=== PATIENT | female | born 1930 | race Two or more races ===

== ENCOUNTER 2018-03-27 13:04 | Inpatient (IN) | payer MEDICARE, BC ==
[~2018-03-27] VITALS: Ht 154.9 cm; Wt 116.7 kg
[2018-03-27] MEDS ORDERED: MAGNESIUM HYDROXIDE 2,400 MG/30 ML ORAL.SUSP. PO PRN (15:00)
[2018-03-27] MEDS ORDERED: MAG HYDROX/AL HYDROX/SIMETH 30 ML ORAL.SUSP PO PRN (15:00)
[2018-03-27] MEDS ORDERED: METHYL SALICYLATE/MENTHOL TOPICAL OINTMENT 29GM TUBE. TP PRN (15:00)
[2018-03-27 15:30] LABS: BASO # 0.1 x10^3/uL (0.0-0.2); BASO % 1 % (0-3); EOS # 0.2 x10^3/uL (0.0-0.7); EOS % 4 % (0-3); HEMATOCRIT 39.2 % (36.0-47.0); HEMOGLOBIN 12.8 g/dL (12.0-15.5); LYMPH # 1.4 x10^3/uL (1.0-4.8); LYMPH % 24 % (24-48); MEAN CORPUSCULAR HEMOGLOBIN 31 pg (25-35); MEAN CORPUSCULAR HGB CONC 33 g/dL (31-37); MEAN CORPUSCULAR VOLUME 94 fL (79-100); MONO # 0.6 x10^3/uL (0.0-1.1); MONO % 11 % (0-9); NEUT # 3.5 x10^3uL (1.8-7.7); NEUT % 61 % (31-73); PLATELET COUNT 147 x10^3/uL (140-400); RED BLOOD COUNT 4.16 x10^6/uL (3.50-5.40); RED CELL DISTRIBUTION WIDTH 14.7 % (11.5-14.5); WHITE BLOOD COUNT 5.8 x10^3/uL (4.0-11.0)
[2018-03-27] MEDS ORDERED: RISP0.5T3 PO (15:43)
[2018-03-27] MEDS ORDERED: WARF7.5T45 PO (15:43)
[2018-03-27] MEDS ORDERED: SERT100T PO (15:43)
[2018-03-27] MEDS ORDERED: ISOS30TA4 PO (15:43)
[2018-03-27] MEDS ORDERED: TRIA15CR50 TP (15:43)
[2018-03-27] MEDS ORDERED: LISI-334 PO (15:43)
[2018-03-27] MEDS ORDERED: HYDR-2145 PO (15:43)
[2018-03-27] MEDS ORDERED: NITR0.4T22 SL (15:43)
[2018-03-27] MEDS ORDERED: CLOP75TA PO (15:43)
[2018-03-27] MEDS ORDERED: CARV25TA2 PO (15:43)
[2018-03-27] MEDS ORDERED: CALC600T23 PO (15:43)
[2018-03-27] MEDS ORDERED: DONE5TAB7 PO (15:43)
[2018-03-27] MEDS ORDERED: WARF3TAB50 PO (15:43)
[2018-03-27] MEDS ORDERED: ASPI-612 PO (15:43)
[2018-03-27 15:44] LABS: ALBUMIN 3.3 g/dL (3.4-5.0); CALCIUM 8.5 mg/dL (8.5-10.1); CREATININE 1.2 mg/dL (0.6-1.0); GFR 42.4; MAGNESIUM 2.2 mg/dL (1.8-2.4); TOTAL BILIRUBIN 0.4 mg/dL (0.2-1.0); TOTAL PROTEIN 6.6 g/dL (6.4-8.2)
[2018-03-27 15:50] VITALS: BP 102/62
[2018-03-27] MEDS ORDERED: NITROGLYCERIN SUBLINGUAL 0.4 MG BOTTLE OF 25. SL PRN (16:00)
[2018-03-27] MEDS ORDERED: TRIAMCINOLONE ACETONIDE 0.1% TOPICAL CREAM 15GM TUBE. TP PRN (16:15)
[2018-03-27] MEDS: CARVEDILOL 12.5 MG TABLET PO SCH (17:26)
[2018-03-27 19:42] VITALS: BP 166/67
[2018-03-27] MEDS: DONEPEZIL HCL 5 MG TABLET. PO SCH (19:44)
[2018-03-27] MEDS: risperiDONE 0.25 MG TABLET. PO SCH (19:44)
[2018-03-27] MEDS: LISINOPRIL 20 MG TABLET PO SCH (19:44)
--- NOTE | 2018-03-27 19:51 | PDOC ---
Exam Note: Donal Note: Please also refer to the separate dictated note~for this date of service dictated separately.~Patient seen individually. Discussed the patient with Nursing staff reviewed the chart.~Reviewed interim history and current functioning. Reviewed vital signs,~Labs/ Radiology~and current medications noted below. Continue current treatment with the changes noted in the dictated addendum note Assessment: Vital Signs: Vital Signs Date Time Temp Pulse Resp B/P (MAP) Pulse Ox O2 Delivery O2 Flow Rate FiO2 03/27/18 19:44 60 166/67 03/27/18 19:42 96 03/27/18 15:50 98.0 18 Labs: Laboratory Tests Test 03/27/18 15:15 White Blood Count 5.8 x10^3/uL (4.0-11.0) Red Blood Count 4.16 x10^6/uL (3.50-5.40) Hemoglobin 12.8 g/dL (12.0-15.5) Hematocrit 39.2 % (36.0-47.0) Mean Corpuscular Volume 94 fL (79-100) Mean Corpuscular Hemoglobin 31 pg (25-35) Mean Corpuscular Hemoglobin Concent 33 g/dL (31-37) Red Cell Distribution Width 14.7 % (11.5-14.5) H Platelet Count 147 x10^3/uL (140-400) Neutrophils (%) (Auto) 61 % (31-73) Lymphocytes (%) (Auto) 24 % (24-48) Monocytes (%) (Auto) 11 % (0-9) H Eosinophils (%) (Auto) 4 % (0-3) H Basophils (%) (Auto) 1 % (0-3) Neutrophils # (Auto) 3.5 x10^3uL (1.8-7.7) Lymphocytes # (Auto) 1.4 x10^3/uL (1.0-4.8) Monocytes # (Auto) 0.6 x10^3/uL (0.0-1.1) Eosinophils # (Auto) 0.2 x10^3/uL (0.0-0.7) Basophils # (Auto) 0.1 x10^3/uL (0.0-0.2) Sodium Level 144 mmol/L (136-145) Potassium Level 4.0 mmol/L (3.5-5.1) Chloride Level 105 mmol/L (98-107) Carbon Dioxide Level 28 mmol/L (21-32) Anion Gap 11 (6-14) Blood Urea Nitrogen 29 mg/dL (7-20) H Creatinine 1.2 mg/dL (0.6-1.0) H Estimated GFR (Cockcroft-Gault) 42.4 BUN/Creatinine Ratio 24 (6-20) H Glucose Level 113 mg/dL (70-99) H Calcium Level 8.5 mg/dL (8.5-10.1) Magnesium Level 2.2 mg/dL (1.8-2.4) Total Bilirubin 0.4 mg/dL (0.2-1.0) Aspartate Amino Transferase (AST) 17 U/L (15-37) Alanine Aminotransferase (ALT) 20 U/L (14-59) Alkaline Phosphatase 79 U/L (46-116) Total Protein 6.6 g/dL (6.4-8.2) Albumin 3.3 g/dL (3.4-5.0) L Albumin/Globulin Ratio 1.0 (1.0-1.7) Current Medications: Meds: Current Medications Acetaminophen (Tylenol) 650 mg PRN Q6HRS PRN PO PAIN / TEMP; Start 03/27/18 at 15:00 Multi-Ingredient Ointment (Analgesic [place]) 1 sofia PRN QID PRN TP MUSCLE PAIN; Start 03/27/18 at 15:00 Al Hydroxide/Mg Hydroxide (Mylanta Plus Xs) 15 ml PRN AFTMEALHC PRN PO DYSPEPSIA; Start 03/27/18 at 15:00 Magnesium Hydroxide (Milk Of Magnesia) 2,400 mg PRN QHS PRN PO CONSTIPATION; Start 03/27/18 at 15:00 Sertraline HCl (Zoloft) 100 mg DAILY PO ; Start 03/28/18 at 09:00 Donepezil HCl (Aricept) 5 mg QHS PO Last administered on 03/27/18at 19:44; Start 03/27/18 at 21:00 Risperidone (RisperDAL) 0.25 mg BID PO Last administered on 03/27/18at 19:44; Start 03/27/18 at 21:00 Clopidogrel Bisulfate (Plavix) 75 mg DAILY PO ; Start 03/28/18 at 09:00 Hydrochlorothiazide (Hydrodiuril) 25 mg DAILY PO ; Start 03/28/18 at 09:00 Isosorbide Mononitrate (Imdur) 30 mg DAILY PO ; Start 03/28/18 at 09:00 Lisinopril (Prinivil) 20 mg BID PO Last administered on 03/27/18at 19:44; Start 03/27/18 at 21:00 Nitroglycerin (Nitrostat) 0.4 mg PRN Q5MIN PRN SL CHEST PAIN; Start 03/27/18 at 16:00 Aspirin (Aspirin Enteric Coated) 81 mg DAILY PO ; Start 03/28/18 at 09:00 Calcium Carbonate/ Glycine (Oscal) 500 mg DAILY PO ; Start 03/28/18 at 09:00 Carvedilol (Coreg) 25 mg BIDWMEALS PO Last administered on 03/27/18at 17:26; Start 03/27/18 at 17:00 Triamcinolone Acetonide (Kenalog) 1 sofia PRN BID PRN TP RASH; Start 03/27/18 at 16:15 Non-Formulary Medication (Warfarin Sodium ) 3.25 mg Mon, Wed, Fri PO ; Start at 16:00; Status UNV Warfarin Sodium (Coumadin) 7.5 mg QTUTHSASU PO ; Start 03/28/18 at 16:00 Active Scripts Active Reported Warfarin Sodium 3 Mg Tablet 3.25 Mg PO TUE, WED, FRI Warfarin Sodium 7.5 Mg Tablet 7.5 Mg PO SUN, , , SA Triamcinolone Acetonide 15 Gm Cream..g. 15 Gm TP PRN BID PRN Zoloft (Sertraline Hcl) 100 Mg Tablet 100 Mg PO DAILY Risperidone 0.5 Mg Tablet 0.25 Mg PO BID NITROGLYCERIN SubLingual (Nitroglycerin) 0.4 Mg Tab.subl 0.4 Mg SL PRN Q5MIN PRN Lisinopril 20 Mg Tablet 20 Mg PO BID Isosorbide Mononitrate Er (Isosorbide Mononitrate) 30 Mg Tab.er.24h 30 Mg PO DAILY Hydrochlorothiazide Tablet (Hydrochlorothiazide) 25 Mg Tablet 25 Mg PO DAILY Donepezil Hcl 5 Mg Tablet 5 Mg PO QHS Clopidogrel (Clopidogrel Bisulfate) 75 Mg Tablet 75 Mg PO DAILY Carvedilol 25 Mg Tablet 25 Mg PO BIDWMEALS Calcium Carbonate 600 Mg Tablet 600 Mg PO DAILY Aspirin Ec (Aspirin) 81 Mg Tablet. 81 Mg PO DAILY I have reviewed the current psychotropics carefully including drug interactions. Risk benefit ratio favors no change other than as noted in my dictated progress note. SHERRY MATHIS MD Mar 27, 2018 19:51
[2018-03-27 20:23] LABS: BILIRUBIN,URINE NEG (NEG); CLARITY,URINE HAZY; COLOR,URINE YELLOW; GLUCOSE,URINE NEG (NEG)
[2018-03-27 20:24] LABS: BACTERIA,URINE 0 /HPF (0-FEW); HYALINE CASTS, URINE MANY /HPF; NITRITE,URINE NEG (NEG); SQUAMOUS EPITHELIAL CELL,UR FEW /LPF; UROBILINOGEN,URINE 0.2 mg/dL (0.2 mg/dL)
[2018-03-28 01:13] LABS: HEMOGLOBIN A1C 5.3 % (4.8-5.6)
[2018-03-28 06:17] VITALS: BP 173/73
[2018-03-28 08:53] VITALS: BP 121/68
[2018-03-28] MEDS: risperiDONE 0.25 MG TABLET. PO SCH ×2 (08:54→19:43)
[2018-03-28] MEDS: LISINOPRIL 20 MG TABLET PO SCH ×2 (08:54→19:43)
[2018-03-28] MEDS: CARVEDILOL 12.5 MG TABLET PO SCH ×2 (08:54→16:55)
[2018-03-28] MEDS: ASPIRIN ENTERIC COATED 81 MG TABLET.DR. PO SCH (08:56)
[2018-03-28] MEDS: CLOPIDOGREL BISULFATE 75 MG TABLET PO SCH (08:56)
[2018-03-28] MEDS: hydroCHLOROthiazide 25 MG TABLET PO SCH (08:56)
[2018-03-28] MEDS: ISOSORBIDE MONONITRATE ER 30 MG TAB.ER.24H PO SCH (08:59)
[2018-03-28] MEDS: CALCIUM CARBONATE 500 MG TABLET PO SCH (08:59)
[2018-03-28] MEDS ORDERED: SERTRALINE 100 MG TABLET. PO SCH (09:00)
[2018-03-28 13:26] LABS: THYROID STIM HORMONE (TSH) 1.382 uIU/mL (0.358-3.740)
[2018-03-28] MEDS: ACETAMINOPHEN 325 MG TABLET PO PRN (14:17)
[2018-03-28 16:16] VITALS: BP 140/80
--- NOTE | 2018-03-28 16:29 | HP ---
ADMIT DATE: 03/27/2018 PSYCHIATRIC ADMISSION HISTORY/EVALUATION This late entry date of service 03/27/2018 covers elements not covered in my initial note. IDENTIFYING DATA: The patient is an 87-year-old female, who was referred by her primary care physician and outpatient psychiatrist on account of suicidal ideation, worsening symptoms of depression and short-term memory deficits. She has failed outpatient psychiatric interventions with her psychiatrist. We had contacted her outpatient psychiatrist, who in fact recommended the patient be hospitalized inpatient. She presented to [facility] Emergency Room the previous night of 03/26/2018 with worsening symptoms of depression, short term memory deficits, suicidal ideation, wanting to end her life. CHIEF COMPLAINT: "She has been depressed. I would not kill myself, but it has been difficult." HISTORY OF PRESENT ILLNESS: The patient reportedly resides in an apartment on her own. Family has been assisting with the administration of her medications. She has had some short term memory deficits, frequently forgets her medications and more recently states she has been tired, feeling helpless, hopeless and worthless. She has had some sleep and appetite changes and the suicidal ideation, feeling she would be better off . No active suicidal plans, intent or attempt. No clear symptoms of bipolar disorder. PAST PSYCHIATRIC HISTORY: As above. MEDICAL HISTORY: Positive for asthma, coronary artery disease, CHF, cholelithiasis, colon polyps, diverticulosis, hypertension, hyperlipidemia, macular degeneration, osteoarthritis, obstructive sleep apnea, osteopenia, pulmonary embolism, squamous cell carcinoma. PAST SURGICAL HISTORY: Status post appendectomy, cardiac catheterization, cholecystectomy, hysterectomy, rotator cuff repair, tonsillectomy, adenoidectomy, and tubal ligation. ACCU-CHEKS: None. CODE STATUS: DNR. ALLERGIES: BACITRACIN NEOMYCIN, HEPARIN, TRIAMTERENE, POLYMYXIN B. DIET: Regular. ACCU-CHEKS: None. Takes medications whole. Ambulates independent with a walker. CURRENT PSYCHOTROPICS: Aricept 5 mg daily, Risperdal 0.25 mg twice a day, Zoloft 100 mg a day. FAMILY HISTORY: Noncontributory. SOCIAL HISTORY: No alcohol, drug abuse, physical, sexual or elder abuse history is noted. She is not known to be a perpetrator. REACTION TO HOSPITALIZATION: The patient accepting of it. ASSETS: Supportive family. The patient was admitted by her DPOA, Katie Harrell. MENTAL STATUS EXAM: The patient was seen individually evening of 03/27/2018. This was shortly after she arrived in the unit. She is alert, oriented to place and situation. She knew it was 2018, was unsure of the month or the date. She was otherwise pleasant, verbal. Short term memory is impaired. Remembered 1/3 objects at 5 minutes. Speech is coherent. Thought processes goal directed. Intellect average. Insight good. Judgment intact. Mood is depressed, anxious. Affect is mood congruent. Attention span is short. She tends to minimize the suicidal ideation that prompted the referral for inpatient stabilization. Her electronic medication administration record was reviewed in detail by me. IMPRESSION: Major depressive disorder, recurrent with suicidal ideation. The major neurocognitive disorder, early vascular with depression, anxiety disorder, unspecified; impulse control disorder, unspecified. Rest as above. PLAN: Admit to Geropsychiatry Unit at [facility]. I will see the patient daily individually from a psychiatric standpoint, medical followup per Dr. Marquez. Continue current psychotropics, observe baseline, then make further adjustments as clinically indicated. MAN Елена MATHIS MD DR: KIRSTEN/comfort JOB#: [id number] / [id number]
[2018-03-28] MEDS: WARFARIN 7.5 MG TABLET. PO SCH (16:54)
--- NOTE | 2018-03-28 17:28 | EKG ---
[address] [address] Test Date: 2018-03-28 Test Time: 16:56:29 Pat Name: JOELLE MILLS Department: Room: [address] [place] [address] Gender: F [employer]: : [id number] Requested By: SHERRY MATHIS Order Number: [id number] Reading MD: Rigo Brown Measurements Intervals [place] Rate: 61 P: -34 [place]: 114 QRS: -33 QRSD: 112 T: 66 QT: 442 QTc: 446 Interpretive Statements SINUS RHYTHM ABNORMAL LEFT AXIS DEVIATION LEFT ANTERIOR FASCICULAR BLOCK T ABNORMALITY IN HIGH LATERAL LEADS ABNORMAL ECG RI6.01 No previous ECG available for comparison Electronically Signed On 03-29-2018 8:50:05 COMBATANT DIVER QUALIFIED by Rigo Brown
--- NOTE | 2018-03-28 19:23 | PDOC ---
Exam Note: Donal Note: Please also refer to the separate dictated note~for this date of service dictated separately.~Patient seen individually. Discussed the patient with Nursing staff reviewed the chart.~Reviewed interim history and current functioning. Reviewed vital signs,~Labs/ Radiology~and current medications noted below. Continue current treatment with the changes noted in the dictated addendum note Assessment: Vital Signs: Vital Signs Date Time Temp Pulse Resp B/P (MAP) Pulse Ox O2 Delivery O2 Flow Rate FiO2 03/28/18 16:55 65 140/80 03/28/18 16:16 97.5 18 98 I&O Intake and Output 03/28/18 07:00 Intake Total 240 ml Balance 240 ml Intake Oral 240 ml Labs: Laboratory Tests Test 03/28/18 14:45 Prothrombin Time 10.5 SEC (9.4-11.4) Prothrombin Time INR 1.1 (0.9-1.1) Current Medications: Meds: Current Medications Acetaminophen (Tylenol) 650 mg PRN Q6HRS PRN PO PAIN / TEMP Last administered on 03/28/18at 14:17; Start 03/27/18 at 15:00 Multi-Ingredient Ointment (Analgesic [place]) 1 sofia PRN QID PRN TP MUSCLE PAIN; Start 03/27/18 at 15:00 Al Hydroxide/Mg Hydroxide (Mylanta Plus Xs) 15 ml PRN AFTMEALHC PRN PO DYSPEPSIA; Start 03/27/18 at 15:00 Magnesium Hydroxide (Milk Of Magnesia) 2,400 mg PRN QHS PRN PO CONSTIPATION; Start 03/27/18 at 15:00 Sertraline HCl (Zoloft) 100 mg DAILY PO Last administered on 03/28/18at 08:56; Start 03/28/18 at 09:00; Stop 03/28/18 at 16:45; Status DC Donepezil HCl (Aricept) 5 mg QHS PO Last administered on 03/27/18at 19:44; Start 03/27/18 at 21:00 Risperidone (RisperDAL) 0.25 mg BID PO Last administered on 03/28/18at 08:54; Start 03/27/18 at 21:00 Clopidogrel Bisulfate (Plavix) 75 mg DAILY PO Last administered on 03/28/18at 08:56; Start 03/28/18 at 09:00 Hydrochlorothiazide (Hydrodiuril) 25 mg DAILY PO Last administered on at 08:56; Start 03/28/18 at 09:00 Isosorbide Mononitrate (Imdur) 30 mg DAILY PO Last administered on 03/28/18at 08:59; Start 03/28/18 at 09:00 Lisinopril (Prinivil) 20 mg BID PO Last administered on 03/28/18at 08:54; Start 03/27/18 at 21:00 Nitroglycerin (Nitrostat) 0.4 mg PRN Q5MIN PRN SL CHEST PAIN; Start 03/27/18 at 16:00 Aspirin (Aspirin Enteric Coated) 81 mg DAILY PO Last administered on at 08:56; Start 03/28/18 at 09:00 Calcium Carbonate/ Glycine (Oscal) 500 mg DAILY PO Last administered on at 08:59; Start 03/28/18 at 09:00 Carvedilol (Coreg) 25 mg BIDWMEALS PO Last administered on 03/28/18at 16:55; Start 03/27/18 at 17:00 Triamcinolone Acetonide (Kenalog) 1 sofia PRN BID PRN TP RASH; Start 03/27/18 at 16:15 Warfarin Sodium (Coumadin) 3.75 mg QMWF PO ; Start 03/29/18 at 16:00 Warfarin Sodium (Coumadin) 7.5 mg QTUTHSASU PO Last administered on 03/28/18at 16:54; Start 03/28/18 at 16:00 Warfarin Sodium (Coumadin Per Physician) 1 each PRN DAILY PRN MC SEE COMMENTS; Start 03/28/18 at 07:30 Vitamin D (Vitamin D3) 50,000 unit WEEKLY PO ; Start 03/29/18 at 09:00 Sertraline HCl (Zoloft) 75 mg DAILY PO ; Start 03/29/18 at 09:00 Bupropion HCl (Wellbutrin Xl) 150 mg DAILY PO ; Start 03/29/18 at 09:00 Active Scripts Active Reported Warfarin Sodium 3 Mg Tablet 3.25 Mg PO MON, WED, FRI Warfarin Sodium 7.5 Mg Tablet 7.5 Mg PO SUN, TU, TH, SA Triamcinolone Acetonide 15 Gm Cream..g. 15 Gm TP PRN BID PRN Zoloft (Sertraline Hcl) 100 Mg Tablet 100 Mg PO DAILY Risperidone 0.5 Mg Tablet 0.25 Mg PO BID NITROGLYCERIN SubLingual (Nitroglycerin) 0.4 Mg Tab.subl 0.4 Mg SL PRN Q5MIN PRN Lisinopril 20 Mg Tablet 20 Mg PO BID Isosorbide Mononitrate Er (Isosorbide Mononitrate) 30 Mg Tab.er.24h 30 Mg PO DAILY Hydrochlorothiazide Tablet (Hydrochlorothiazide) 25 Mg Tablet 25 Mg PO DAILY Donepezil Hcl 5 Mg Tablet 5 Mg PO QHS Clopidogrel (Clopidogrel Bisulfate) 75 Mg Tablet 75 Mg PO DAILY Carvedilol 25 Mg Tablet 25 Mg PO BIDWMEALS Calcium Carbonate 600 Mg Tablet 600 Mg PO DAILY Aspirin Ec (Aspirin) 81 Mg Tablet.dr 81 Mg PO DAILY I have reviewed the current psychotropics carefully including drug interactions. Risk benefit ratio favors no change other than as noted in my dictated progress note. Diagnosis: Problems: (1) Confusion (2) Depression SHERRY MATHIS MD Mar 28, 2018 19:23
[2018-03-28] MEDS: DONEPEZIL HCL 5 MG TABLET. PO SCH (19:43)
--- NOTE | 2018-03-29 00:44 | CONS ---
DATE OF CONSULTATION: 03/28/2018 REASON FOR CONSULTATION: Medical management. HISTORY OF PRESENT ILLNESS: The patient is an 87-year-old female patient, who was brought in by her daughter as she signed herself and she apparently went to [facility] for depression with suicidal ideations, stating that if she had a gun, she would have killed herself, all this in a background of major depressive disorder. On questioning her, she stated that she is lonely. I think she lost her sons, one of them has killed himself. One daughter lives in [place] and she has not seen her for years and her daughter from second marriage lives nearby her and keeps an eye on her. She lives alone with her cats. PAST MEDICAL HISTORY: Significant for bronchial asthma, coronary artery disease, congestive heart failure, hypertension, hyperlipidemia, macular degeneration, osteoarthritis, obstructive sleep apnea, osteopenia, pulmonary embolism, and squamous cell carcinoma. PAST SURGICAL HISTORY: Significant for appendectomy, cardiac catheterization, cholecystectomy, hysterectomy, rotator cuff repair, tonsillectomy, adenoidectomy and tubal ligation. PAST PSYCHIATRIC HISTORY: Significant for depression. ALLERGIES: She is allergic to BACITRACIN, NEOMYCIN, HEPARIN, TRIAMTERENE, AND POLYMYXIN B. MEDICATIONS: She is currently on following medications: She is on Aricept 5 mg at bedtime; warfarin 7.5 mg on Tuesday, Tuesday, and Tuesday and she is on warfarin 3.25 mg on Tuesday, Tuesday, Tuesday; Plavix 75 mg once a day, isosorbide mononitrate 30 mg daily, nitroglycerin 0.4 mg sublingually every 5 minutes x3. She is on carvedilol 25 mg twice a day with meals, lisinopril 20 mg twice a day, aspirin 81 mg daily, sertraline 100 mg daily, risperidone 0.25 mg twice a day, calcium carbonate 600 mg daily, hydrochlorothiazide 25 mg once a day, triamcinolone acetonide cream applied topically twice a day for skin rash. FAMILY HISTORY: Unremarkable. SOCIAL HISTORY: She is , lives alone. She has one daughter that lives nearby and other one lives in [place]. She does not smoke, drink alcohol or recreational drugs. 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 REVIEW OF SYSTEMS: The patient denied any blurring of vision, cataract, glaucoma, but has senile macular degeneration. Denied any earache, tinnitus or sensorineural deafness. Denied any nosebleeds, stuffy nose or postnasal drip. Denied any sore throat, sore tongue, toothache, hoarseness of voice or difficulty swallowing. Denied any nausea, vomiting, diarrhea or constipation. Denied any hematemesis, melena or hematochezia. Denied any dysuria, frequency or hematuria. Denied any chest pain. Did complain of shortness of breath on exertion, but denied any orthopnea or paroxysmal nocturnal dyspnea. Denied any cough, phlegm or hemoptysis. Denied any chills, rigors, or fever. Denied any dizziness, lightheadedness, or vertigo. She did have sleep apnea done twice, was diagnosed with obstructive sleep apnea but refused to go on CPAP. PHYSICAL EXAMINATION: GENERAL: When I examined her, she looked well and was clearly in no apparent respiratory distress. No pallor, jaundice, cyanosis, or thyromegaly. No jugular venous distension. No limb edema. VITAL SIGNS: Her heart rate was 65, blood pressure was 121/68, temperature was 97.8, respiratory rate was 18 and oxygen saturation was 94% on room air. HEAD, EYES, EARS, NOSE, and THROAT: Showed normocephalic, atraumatic. NECK: Supple. HEART: Showed normal first and second sounds. No gallop, rub or murmur. CHEST: Clear to auscultation. No crepitation or rhonchi. ABDOMEN: Distended, soft, and nontender. NEUROLOGIC: She was awake, alert, responding appropriately. Her cranial nerves were intact. EXTREMITIES: She moves extremities without difficulty. She ambulates with a walker. LABORATORY DATA: Showed a white cell count 5800, hemoglobin 13, hematocrit 39, MCV 94 and platelet count of 147,000. Her chemistry showed a serum sodium of 144, potassium 4, chloride 105, bicarbonate 28, anion gap of 11, BUN 29, creatinine 1.2, estimated GFR was 42 mL per minute. Her glucose 113, calcium was 8.5, magnesium 2.2. Total bilirubin, AST, ALT, and alkaline phosphatase were normal. Total protein 6.6, albumin 3.3. Her urinalysis was unremarkable and her Treponema pallidum antibody was nonreactive. IMPRESSION: In summary, this is an 87-year-old female patient, who was admitted with depression and suicidal ideation. She went to the [facility] stating that if she had a gun, she would have killed herself, all this obviously in a background of major depressive disorder. She has numerous medical problems including bronchial asthma, congestive heart failure, depression, hypertension, hyperlipidemia, macular degeneration, osteoarthritis, obstructive sleep apnea, osteopenia, pulmonary embolism, and squamous cell carcinoma. We need to check her prothrombin time to make sure that is within therapeutic range as she is on Coumadin and other than that, all her lab work seems to be generally within acceptable range. Her hemoglobin A1c is only 5.3%. Her iron studies showed it is adequately replaced. Her 25-hydroxy vitamin D is low, so I will start her on cholecalciferol and obviously we will review all the other lab works still pending and make any necessary recommendation. Thank you, Dr. Jefferson for allowing me to participate in the care of this patient. FORD HAMMOND MD DR: GAEL/comfort JOB#: [id number] / [id number]
[2018-03-29 05:50] VITALS: BP 156/51
[2018-03-29] MEDS: risperiDONE 0.25 MG TABLET. PO SCH ×2 (09:07→19:21)
[2018-03-29] MEDS: ASPIRIN ENTERIC COATED 81 MG TABLET.DR. PO SCH (09:07)
[2018-03-29] MEDS: hydroCHLOROthiazide 25 MG TABLET PO SCH (09:07)
[2018-03-29] MEDS: CLOPIDOGREL BISULFATE 75 MG TABLET PO SCH (09:07)
[2018-03-29] MEDS: LISINOPRIL 20 MG TABLET PO SCH ×2 (09:07→19:20)
[2018-03-29] MEDS: CARVEDILOL 12.5 MG TABLET PO SCH ×2 (09:08→16:01)
[2018-03-29] MEDS: ISOSORBIDE MONONITRATE ER 30 MG TAB.ER.24H PO SCH (09:08)
[2018-03-29] MEDS: CALCIUM CARBONATE 500 MG TABLET PO SCH (09:08)
[2018-03-29] MEDS: buPROPion XL 150 MG TAB.ER.24H PO SCH (09:09)
[2018-03-29] MEDS: CHOLECALCIFEROL (VITAMIN D3) 50,000 UNIT CAPSULE PO SCH (09:09)
[2018-03-29] MEDS: SERTRALINE 50 MG TABLET. PO SCH (09:11)
[2018-03-29 16:02] VITALS: BP 136/55
[2018-03-29] MEDS: WARFARIN 7.5 MG TABLET. PO SCH (16:02)
[2018-03-29] MEDS: DONEPEZIL HCL 5 MG TABLET. PO SCH (19:21)
--- NOTE | 2018-03-29 19:53 | PDOC ---
Exam Note: Donal Note: Please also refer to the separate dictated note~for this date of service dictated separately.~Patient seen individually. Discussed the patient with Nursing staff reviewed the chart.~Reviewed interim history and current functioning. Reviewed vital signs,~Labs/ Radiology~and current medications noted below. Continue current treatment with the changes noted in the dictated addendum note Assessment: Vital Signs: Vital Signs Date Time Temp Pulse Resp B/P (MAP) Pulse Ox O2 Delivery O2 Flow Rate FiO2 03/29/18 19:20 65 136/55 03/29/18 16:02 97.6 18 96 I&O Intake and Output 03/29/18 07:00 Intake Total 1060 ml Balance 1060 ml Intake Oral 1060 ml Current Medications: Meds: Current Medications Acetaminophen (Tylenol) 650 mg PRN Q6HRS PRN PO PAIN / TEMP Last administered on 03/28/18at 14:17; Start 03/27/18 at 15:00 Multi-Ingredient Ointment (Analgesic [place]) 1 sofia PRN QID PRN TP MUSCLE PAIN; Start 03/27/18 at 15:00 Al Hydroxide/Mg Hydroxide (Mylanta Plus Xs) 15 ml PRN AFTMEALHC PRN PO DYSPEPSIA; Start 03/27/18 at 15:00 Magnesium Hydroxide (Milk Of Magnesia) 2,400 mg PRN QHS PRN PO CONSTIPATION; Start 03/27/18 at 15:00 Sertraline HCl (Zoloft) 100 mg DAILY PO Last administered on 03/28/18at 08:56; Start 03/28/18 at 09:00; Stop 03/28/18 at 16:45; Status DC Donepezil HCl (Aricept) 5 mg QHS PO Last administered on 03/29/18at 19:21; Start 03/27/18 at 21:00 Risperidone (RisperDAL) 0.25 mg BID PO Last administered on 03/29/18at 19:21; Start 03/27/18 at 21:00 Clopidogrel Bisulfate (Plavix) 75 mg DAILY PO Last administered on 03/29/18at 09:07; Start 03/28/18 at 09:00 Hydrochlorothiazide (Hydrodiuril) 25 mg DAILY PO Last administered on at 09:07; Start 03/28/18 at 09:00 Isosorbide Mononitrate (Imdur) 30 mg DAILY PO Last administered on 03/29/18at 09:08; Start 03/28/18 at 09:00 Lisinopril (Prinivil) 20 mg BID PO Last administered on 03/29/18at 19:20; Start 03/27/18 at 21:00 Nitroglycerin (Nitrostat) 0.4 mg PRN Q5MIN PRN SL CHEST PAIN; Start 03/27/18 at 16:00 Aspirin (Aspirin Enteric Coated) 81 mg DAILY PO Last administered on at 09:07; Start 03/28/18 at 09:00 Calcium Carbonate/ Glycine (Oscal) 500 mg DAILY PO Last administered on 09:08; Start 03/28/18 at 09:00 Carvedilol (Coreg) 25 mg BIDWMEALS PO Last administered on 03/29/18at 16:01; Start 03/27/18 at 17:00 Triamcinolone Acetonide (Kenalog) 1 sofia PRN BID PRN TP RASH; Start 03/27/18 at 16:15 Warfarin Sodium (Coumadin) 3.75 mg QMWF PO Last administered on 03/29/18at 16: 02; Start 03/29/18 at 16:00 Warfarin Sodium (Coumadin) 7.5 mg QTUTHSASU PO Last administered on 03/28/18at 16:54; Start 03/28/18 at 16:00 Warfarin Sodium (Coumadin Per Physician) 1 each PRN DAILY PRN MC SEE COMMENTS; Start 03/28/18 at 07:30 Vitamin D (Vitamin D3) 50,000 unit WEEKLY PO Last administered on 03/29/18at 09 :09; Start 03/29/18 at 09:00 Sertraline HCl (Zoloft) 75 mg DAILY PO Last administered on 03/29/18at 09:11; Start 03/29/18 at 09:00 Bupropion HCl (Wellbutrin Xl) 150 mg DAILY PO Last administered on 03/29/18at 09:09; Start 03/29/18 at 09:00 Active Scripts Active Reported Warfarin Sodium 3 Mg Tablet 3.25 Mg PO MON, WED, FRI Warfarin Sodium 7.5 Mg Tablet 7.5 Mg PO SUN, TUES, TH, SA Triamcinolone Acetonide 15 Gm Cream..g. 15 Gm TP PRN BID PRN Zoloft (Sertraline Hcl) 100 Mg Tablet 100 Mg PO DAILY Risperidone 0.5 Mg Tablet 0.25 Mg PO BID NITROGLYCERIN SubLingual (Nitroglycerin) 0.4 Mg Tab.subl 0.4 Mg SL PRN Q5MIN PRN Lisinopril 20 Mg Tablet 20 Mg PO BID Isosorbide Mononitrate Er (Isosorbide Mononitrate) 30 Mg Tab.er.24h 30 Mg PO DAILY Hydrochlorothiazide Tablet (Hydrochlorothiazide) 25 Mg Tablet 25 Mg PO DAILY Donepezil Hcl 5 Mg Tablet 5 Mg PO QHS Clopidogrel (Clopidogrel Bisulfate) 75 Mg Tablet 75 Mg PO DAILY Carvedilol 25 Mg Tablet 25 Mg PO BIDWMEALS Calcium Carbonate 600 Mg Tablet 600 Mg PO DAILY Aspirin Ec (Aspirin) 81 Mg Tablet.dr 81 Mg PO DAILY I have reviewed the current psychotropics carefully including drug interactions. Risk benefit ratio favors no change other than as noted in my dictated progress note. Diagnosis: Problems: (1) Anxiety disorder (2) Alzheimer's dementia (3) Major neurocognitive disorder, due to vascular disease, with behavioral disturbance, mild (4) Impulse control disorder (5) Suicidal ideation (6) Depression (7) Confusion SHERRY MATHIS MD Mar 29, 2018 19:53
--- NOTE | 2018-03-29 21:16 | PN ---
DATE: 03/28/2018 PSYCHIATRIC PROGRESS NOTE This late entry 03/28/2018 covers elements not covered in my initial note. SUBJECTIVE: I met with the patient in the evening. Per nursing report, the patient is reasonably oriented to place and situation. As I met with her at great length in her room, she remains depressed, states she has spent all her energy raising her family and now she has few visits from them. She states she knows she should not expect too much, but nevertheless feels it is hard to adapt to this. REVIEW OF SYSTEMS: Positive for tiredness. No CV, , pulmonary, eye system symptoms on review. Gait unsteady with walker. MENTAL STATUS EXAM: Reasonably oriented. Speech is coherent. She was very verbal, open, forthcoming. Abstraction fair, computation impaired, language function intact, attention span short. Mood and affect remain somewhat depressed. No active suicidal ideation, questioned her closely on this. LABORATORY DATA: Reviewed. IMPRESSION: Major depressive disorder, recurrent; anxiety disorder, unspecified; impulse control disorder, unspecified; cognitive disorder, unspecified. PLAN: Maintain psychotropics from initial note. Wellbutrin is being used to augment the Zoloft and we will maintain Aricept and Risperdal for now. SHERRY MATHIS MD DR: KIRSTEN/comfort JOB#: [id number] / [id number]
[2018-03-30 05:38] VITALS: BP 116/62
[2018-03-30] MEDS: CALCIUM CARBONATE 500 MG TABLET PO SCH (07:49)
[2018-03-30] MEDS: risperiDONE 0.25 MG TABLET. PO SCH ×2 (07:49→19:16)
[2018-03-30] MEDS: CARVEDILOL 12.5 MG TABLET PO SCH ×2 (07:49→16:14)
[2018-03-30] MEDS: CLOPIDOGREL BISULFATE 75 MG TABLET PO SCH (07:49)
[2018-03-30] MEDS: hydroCHLOROthiazide 25 MG TABLET PO SCH (07:50)
[2018-03-30] MEDS: SERTRALINE 50 MG TABLET. PO SCH (07:50)
[2018-03-30] MEDS: buPROPion XL 150 MG TAB.ER.24H PO SCH (07:50)
[2018-03-30] MEDS: LISINOPRIL 20 MG TABLET PO SCH ×2 (07:50→19:15)
[2018-03-30] MEDS: ASPIRIN ENTERIC COATED 81 MG TABLET.DR. PO SCH (07:50)
[2018-03-30] MEDS: ISOSORBIDE MONONITRATE ER 30 MG TAB.ER.24H PO SCH (07:51)
[2018-03-30 15:38] VITALS: BP 149/67
[2018-03-30] MEDS: WARFARIN 7.5 MG TABLET. PO SCH (16:14)
[2018-03-30] MEDS: DONEPEZIL HCL 5 MG TABLET. PO SCH (19:15)
--- NOTE | 2018-03-30 22:56 | PDOC ---
Exam Note: Donal Note: Please also refer to the separate dictated note~for this date of service dictated separately.~Patient seen individually. Discussed the patient with Nursing staff reviewed the chart.~Reviewed interim history and current functioning. Reviewed vital signs,~Labs/ Radiology~and current medications noted below. Continue current treatment with the changes noted in the dictated addendum note Assessment: Vital Signs: Vital Signs Date Time Temp Pulse Resp B/P (MAP) Pulse Ox O2 Delivery O2 Flow Rate FiO2 03/30/18 19:15 65 149/67 03/30/18 15:38 98.1 18 95 Room Air I&O Intake and Output 03/30/18 07:01 Intake Total 1040 ml Balance 1040 ml Intake Oral 1040 ml # Voids 1 # Bowel Movements 1 Current Medications: Meds: Current Medications Acetaminophen (Tylenol) 650 mg PRN Q6HRS PRN PO PAIN / TEMP Last administered on 03/28/18at 14:17; Start 03/27/18 at 15:00 Multi-Ingredient Ointment (Analgesic [place]) 1 sofia PRN QID PRN TP MUSCLE PAIN; Start 03/27/18 at 15:00 Al Hydroxide/Mg Hydroxide (Mylanta Plus Xs) 15 ml PRN AFTMEALHC PRN PO DYSPEPSIA; Start 03/27/18 at 15:00 Magnesium Hydroxide (Milk Of Magnesia) 2,400 mg PRN QHS PRN PO CONSTIPATION; Start 03/27/18 at 15:00 Sertraline HCl (Zoloft) 100 mg DAILY PO Last administered on 03/28/18at 08:56; Start 03/28/18 at 09:00; Stop 03/28/18 at 16:45; Status DC Donepezil HCl (Aricept) 5 mg QHS PO Last administered on 03/30/18at 19:15; Start 03/27/18 at 21:00 Risperidone (RisperDAL) 0.25 mg BID PO Last administered on 03/30/18at 07:49; Start 03/27/18 at 21:00; Stop 03/30/18 at 11:22; Status DC Clopidogrel Bisulfate (Plavix) 75 mg DAILY PO Last administered on 03/30/18at 07:49; Start 03/28/18 at 09:00 Hydrochlorothiazide (Hydrodiuril) 25 mg DAILY PO Last administered on 07:50; Start 03/28/18 at 09:00 Isosorbide Mononitrate (Imdur) 30 mg DAILY PO Last administered on 03/30/18at 07:51; Start 03/28/18 at 09:00 Lisinopril (Prinivil) 20 mg BID PO Last administered on 03/30/18 19:15; Start 03/27/18 at 21:00 Nitroglycerin (Nitrostat) 0.4 mg PRN Q5MIN PRN SL CHEST PAIN; Start 03/27/18 at 16:00 Aspirin (Aspirin Enteric Coated) 81 mg DAILY PO Last administered on 07:50; Start 03/28/18 at 09:00 Calcium Carbonate/ Glycine (Oscal) 500 mg DAILY PO Last administered on 07:49; Start 03/28/18 at 09:00 Carvedilol (Coreg) 25 mg BIDWMEALS PO Last administered on 03/30/18 16:14; Start 03/27/18 at 17:00 Triamcinolone Acetonide (Kenalog) 1 sofia PRN BID PRN TP RASH; Start 03/27/18 at 16:15 Warfarin Sodium (Coumadin) 3.75 mg QMWF PO Last administered on 03/29/18at 16: 02; Start 03/29/18 at 16:00 Warfarin Sodium (Coumadin) 7.5 mg QTUTHSASU PO Last administered on 03/30/18 16:14; Start 03/28/18 at 16:00 Warfarin Sodium (Coumadin Per Physician) 1 each PRN DAILY PRN MC SEE COMMENTS; Start 03/28/18 at 07:30 Vitamin D (Vitamin D3) 50,000 unit WEEKLY PO Last administered on 03/29/18at 09 :09; Start 03/29/18 at 09:00 Sertraline HCl (Zoloft) 75 mg DAILY PO Last administered on 03/30/18 07:50; Start 03/29/18 at 09:00 Bupropion HCl (Wellbutrin Xl) 150 mg DAILY PO Last administered on 03/30/18 07:50; Start 03/29/18 at 09:00 Risperidone (RisperDAL) 0.25 mg QHS PO Last administered on 12/20/18at 19:16; Start 03/30/18 at 21:00 Active Scripts Active Reported Warfarin Sodium 3 Mg Tablet 3.25 Mg PO TUE, TUE, TUE Warfarin Sodium 7.5 Mg Tablet 7.5 Mg PO TUE, , , Triamcinolone Acetonide 15 Gm Cream..g. 15 Gm TP PRN BID PRN Zoloft (Sertraline Hcl) 100 Mg Tablet 100 Mg PO DAILY Risperidone 0.5 Mg Tablet 0.25 Mg PO BID NITROGLYCERIN SubLingual (Nitroglycerin) 0.4 Mg Tab.subl 0.4 Mg SL PRN Q5MIN PRN Lisinopril 20 Mg Tablet 20 Mg PO BID Isosorbide Mononitrate Er (Isosorbide Mononitrate) 30 Mg Tab.er.24h 30 Mg PO DAILY Hydrochlorothiazide Tablet (Hydrochlorothiazide) 25 Mg Tablet 25 Mg PO DAILY Donepezil Hcl 5 Mg Tablet 5 Mg PO QHS Clopidogrel (Clopidogrel Bisulfate) 75 Mg Tablet 75 Mg PO DAILY Carvedilol 25 Mg Tablet 25 Mg PO BIDWMEALS Calcium Carbonate 600 Mg Tablet 600 Mg PO DAILY Aspirin Ec (Aspirin) 81 Mg Tablet.dr 81 Mg PO DAILY I have reviewed the current psychotropics carefully including drug interactions. Risk benefit ratio favors no change other than as noted in my dictated progress note. Diagnosis: Problems: (1) Confusion (2) Depression (3) Anxiety disorder (4) Impulse control disorder (5) Suicidal ideation (6) Alzheimer's dementia (7) Major neurocognitive disorder, due to vascular disease, with behavioral disturbance, mild DELFINASHERRY LU MD Mar 30, 2018 22:56
[2018-03-31 06:28] VITALS: BP 148/72
[2018-03-31] MEDS: ASPIRIN ENTERIC COATED 81 MG TABLET.DR. PO SCH (08:20)
[2018-03-31] MEDS: hydroCHLOROthiazide 25 MG TABLET PO SCH (08:20)
[2018-03-31] MEDS: CLOPIDOGREL BISULFATE 75 MG TABLET PO SCH (08:20)
[2018-03-31] MEDS: ISOSORBIDE MONONITRATE ER 30 MG TAB.ER.24H PO SCH (08:21)
[2018-03-31] MEDS: CARVEDILOL 12.5 MG TABLET PO SCH ×2 (08:21→16:22)
[2018-03-31] MEDS: buPROPion XL 150 MG TAB.ER.24H PO SCH (08:22)
[2018-03-31] MEDS: CALCIUM CARBONATE 500 MG TABLET PO SCH (08:22)
[2018-03-31] MEDS: SERTRALINE 50 MG TABLET. PO SCH (08:22)
[2018-03-31] MEDS: LISINOPRIL 20 MG TABLET PO SCH ×2 (08:23→19:38)
[2018-03-31 15:24] VITALS: BP 114/68
[2018-03-31] MEDS: WARFARIN 7.5 MG TABLET. PO SCH (16:27)
[2018-03-31] MEDS: DONEPEZIL HCL 5 MG TABLET. PO SCH (19:38)
[2018-03-31] MEDS: risperiDONE 0.25 MG TABLET. PO SCH (19:38)
--- NOTE | 2018-03-31 20:28 | PN ---
DATE: 03/29/2018 PSYCHIATRIC PROGRESS NOTE This late entry 03/29/2018 covers elements not covered in my initial note. SUBJECTIVE: I met with the patient in the evening. The patient slept 8-1/2 hours previous night. She has been coming out more for groups and activities, decorated cookies during the [place] group. She denies suicidal ideation. She does have short term memory deficits. During the individual visit, she is very verbal forthcoming about not having enough time with her 26 grandchildren or her children, but she understands how they are all busy and what they do. We addressed ways around this using technology and smart phone, and [employer] options. I have also discussed this with social service staff. REVIEW OF SYSTEMS: Ambulation impaired with walker. No CV, , pulmonary, eye system symptoms on review. MENTAL STATUS EXAM: Oriented to herself and situation. Speech is coherent, abstraction fair, computation impaired, language function intact. Short term memory is impaired. Mood and affect is somewhat dysphoric. No active suicidal ideation. LABORATORY DATA: Reviewed. IMPRESSION: Major depressive disorder, recurrent; anxiety disorder, unspecified; cognitive disorder, unspecified. PLAN: Continue Zoloft, Wellbutrin, and we have considered reducing the Risperdal as we do not see any clear psychotic symptoms. Rest unchanged. SHERRY MATHIS MD DR: KIRSTEN/comfort JOB#: [id number] / [id number]
--- NOTE | 2018-03-31 20:33 | PN ---
DATE: 03/30/2018 PSYCHIATRIC PROGRESS NOTE This late entry 03/30/2018 covers elements not covered in my initial note. SUBJECTIVE: I met with the patient in the evening. The patient staffed at a treatment team meeting with the entire team in the morning and the patient's daughter, Katie attended the conference. We discussed her history at length, possible placement at [facility]. The patient used to enjoy attila and embroidery in the past, but unable to do this due to macular degeneration. We addressed ways for other activities in communication with the family as noted in her prior note. She has 26 grandchildren and rather large family, but the lack of contact is depressing for her. Social service to confirm she has no gun at home. REVIEW OF SYSTEMS: Ambulation impaired with walker. No CV, , pulmonary, eye system symptoms on review. MENTAL STATUS EXAM: Oriented to herself and situation. Speech has some latency, coherent. Abstraction fair, computation impaired, language function intact, attention span short. Mood and affect somewhat dysphoric. No suicidal ideation. LABORATORY DATA: Reviewed. IMPRESSION: Major depressive disorder in partial remission; major neurocognitive disorder, early Alzheimer, vascular with depression. PLAN: Reduce the Risperdal from 0.25 mg twice a day down to 0.25 mg at bedtime. Continue rest of psychotropics unchanged for now. SHERRY MATHIS MD DR: KIRSTEN/comfort JOB#: [id number] / [id number]
--- NOTE | 2018-03-31 22:44 | PDOC ---
Exam Note: Donal Note: Please also refer to the separate dictated note~for this date of service dictated separately.~Patient seen individually. Discussed the patient with Nursing staff reviewed the chart.~Reviewed interim history and current functioning. Reviewed vital signs,~Labs/ Radiology~and current medications noted below. Continue current treatment with the changes noted in the dictated addendum note Assessment: Vital Signs: Vital Signs Date Time Temp Pulse Resp B/P (MAP) Pulse Ox O2 Delivery O2 Flow Rate FiO2 03/31/18 19:38 85 114/68 03/31/18 15:24 97.5 16 95 03/31/18 06:28 Room Air I&O Intake and Output 03/31/18 07:01 Intake Total 840 ml Balance 840 ml Intake Oral 840 ml # Bowel Movements 1 Labs: Laboratory Tests Test 03/31/18 06:48 Prothrombin Time 13.5 SEC (9.4-11.4) H Prothrombin Time INR 1.4 (0.9-1.1) H Current Medications: Meds: Current Medications Acetaminophen (Tylenol) 650 mg PRN Q6HRS PRN PO PAIN / TEMP Last administered on 03/28/18at 14:17; Start 03/27/18 at 15:00 Multi-Ingredient Ointment (Analgesic [place]) 1 sofia PRN QID PRN TP MUSCLE PAIN; Start 03/27/18 at 15:00 Al Hydroxide/Mg Hydroxide (Mylanta Plus Xs) 15 ml PRN AFTMEALHC PRN PO DYSPEPSIA; Start 03/27/18 at 15:00 Magnesium Hydroxide (Milk Of Magnesia) 2,400 mg PRN QHS PRN PO CONSTIPATION Last administered on 03/31/18at 20:11; Start 03/27/18 at 15:00 Sertraline HCl (Zoloft) 100 mg DAILY PO Last administered on 03/28/18at 08:56; Start 03/28/18 at 09:00; Stop 03/28/18 at 16:45; Status DC Donepezil HCl (Aricept) 5 mg QHS PO Last administered on 03/31/18at 19:38; Start 03/27/18 at 21:00 Risperidone (RisperDAL) 0.25 mg BID PO Last administered on 03/30/18at 07:49; Start 03/27/18 at 21:00; Stop 03/30/18 at 11:22; Status DC Clopidogrel Bisulfate (Plavix) 75 mg DAILY PO Last administered on 03/31/18 08:20; Start 03/28/18 at 09:00 Hydrochlorothiazide (Hydrodiuril) 25 mg DAILY PO Last administered on 08:20; Start 03/28/18 at 09:00 Isosorbide Mononitrate (Imdur) 30 mg DAILY PO Last administered on 03/31/18at 08:21; Start 03/28/18 at 09:00 Lisinopril (Prinivil) 20 mg BID PO Last administered on 03/31/18 19:38; Start 03/27/18 at 21:00 Nitroglycerin (Nitrostat) 0.4 mg PRN Q5MIN PRN SL CHEST PAIN; Start 03/27/18 at 16:00 Aspirin (Aspirin Enteric Coated) 81 mg DAILY PO Last administered on 08:20; Start 03/28/18 at 09:00 Calcium Carbonate/ Glycine (Oscal) 500 mg DAILY PO Last administered on 08:22; Start 03/28/18 at 09:00 Carvedilol (Coreg) 25 mg BIDWMEALS PO Last administered on 03/31/18 16:22; Start 03/27/18 at 17:00 Triamcinolone Acetonide (Kenalog) 1 sofia PRN BID PRN TP RASH; Start 03/27/18 at 16:15 Warfarin Sodium (Coumadin) 3.75 mg QMWF PO Last administered on 03/31/18at 16: 27; Start 03/29/18 at 16:00 Warfarin Sodium (Coumadin) 7.5 mg QTUTHSASU PO Last administered on 03/30/18at 16:14; Start 03/28/18 at 16:00 Warfarin Sodium (Coumadin Per Physician) 1 each PRN DAILY PRN MC SEE COMMENTS; Start 03/28/18 at 07:30 Vitamin D (Vitamin D3) 50,000 unit WEEKLY PO Last administered on 03/29/18at 09 :09; Start 03/29/18 at 09:00 Sertraline HCl (Zoloft) 75 mg DAILY PO Last administered on 03/31/18at 08:22; Start 03/29/18 at 09:00 Bupropion HCl (Wellbutrin Xl) 150 mg DAILY PO Last administered on 03/31/18at 08:22; Start 03/29/18 at 09:00 Risperidone (RisperDAL) 0.25 mg QHS PO Last administered on 03/31/18at 19:38; Start 03/30/18 at 21:00 Polyethylene Glycol (miraLAX) 17 gm DAILY PO ; Start 04/01/18 at 09:00 Active Scripts Active Reported Warfarin Sodium 3 Mg Tablet 3.25 Mg PO TUE, TUE, TUE Warfarin Sodium 7.5 Mg Tablet 7.5 Mg PO TUE, , , Triamcinolone Acetonide 15 Gm Cream..g. 15 Gm TP PRN BID PRN Zoloft (Sertraline Hcl) 100 Mg Tablet 100 Mg PO DAILY Risperidone 0.5 Mg Tablet 0.25 Mg PO BID NITROGLYCERIN SubLingual (Nitroglycerin) 0.4 Mg Tab.subl 0.4 Mg SL PRN Q5MIN PRN Lisinopril 20 Mg Tablet 20 Mg PO BID Isosorbide Mononitrate Er (Isosorbide Mononitrate) 30 Mg Tab.er.24h 30 Mg PO DAILY Hydrochlorothiazide Tablet (Hydrochlorothiazide) 25 Mg Tablet 25 Mg PO DAILY Donepezil Hcl 5 Mg Tablet 5 Mg PO QHS Clopidogrel (Clopidogrel Bisulfate) 75 Mg Tablet 75 Mg PO DAILY Carvedilol 25 Mg Tablet 25 Mg PO BIDWMEALS Calcium Carbonate 600 Mg Tablet 600 Mg PO DAILY Aspirin Ec (Aspirin) 81 Mg Tablet.dr 81 Mg PO DAILY I have reviewed the current psychotropics carefully including drug interactions. Risk benefit ratio favors no change other than as noted in my dictated progress note. Diagnosis: Problems: (1) Confusion (2) Depression (3) Anxiety disorder (4) Impulse control disorder (5) Suicidal ideation (6) Alzheimer's dementia (7) Major neurocognitive disorder, due to vascular disease, with behavioral disturbance, SHERRY Torres MD Mar 31, 2018 22:44
[2018-04-01 06:41] VITALS: BP 130/80
[2018-04-01] MEDS: CARVEDILOL 12.5 MG TABLET PO SCH ×2 (08:00→16:34)
[2018-04-01] MEDS: ISOSORBIDE MONONITRATE ER 30 MG TAB.ER.24H PO SCH (09:59)
[2018-04-01] MEDS: ASPIRIN ENTERIC COATED 81 MG TABLET.DR. PO SCH (09:59)
[2018-04-01] MEDS: hydroCHLOROthiazide 25 MG TABLET PO SCH (09:59)
[2018-04-01] MEDS: buPROPion XL 150 MG TAB.ER.24H PO SCH (10:00)
[2018-04-01] MEDS: SERTRALINE 50 MG TABLET. PO SCH (10:00)
[2018-04-01] MEDS: LISINOPRIL 20 MG TABLET PO SCH ×2 (10:00→19:26)
[2018-04-01] MEDS: CALCIUM CARBONATE 500 MG TABLET PO SCH (10:00)
[2018-04-01] MEDS: CLOPIDOGREL BISULFATE 75 MG TABLET PO SCH (10:00)
[2018-04-01] MEDS: POLYETHYLENE GLYCOL 3350 17 GM PACKET. PO SCH (10:02)
[2018-04-01 16:05] VITALS: BP 138/56
[2018-04-01] MEDS: WARFARIN 7.5 MG TABLET. PO SCH (16:34)
[2018-04-01] MEDS: risperiDONE 0.25 MG TABLET. PO SCH (19:25)
[2018-04-01] MEDS: DONEPEZIL HCL 5 MG TABLET. PO SCH (19:25)
--- NOTE | 2018-04-01 22:04 | PDOC ---
Exam Note: Donal Note: Please also refer to the separate dictated note~for this date of service dictated separately.~Patient seen individually. Discussed the patient with Nursing staff reviewed the chart.~Reviewed interim history and current functioning. Reviewed vital signs,~Labs/ Radiology~and current medications noted below. Continue current treatment with the changes noted in the dictated addendum note Assessment: Vital Signs: Vital Signs Date Time Temp Pulse Resp B/P (MAP) Pulse Ox O2 Delivery O2 Flow Rate FiO2 04/01/18 19:26 80 138/56 04/01/18 16:05 98.0 20 93 Room Air I&O Intake and Output 04/01/18 07:01 Intake Total 1320 ml Balance 1320 ml Intake Oral 1320 ml Current Medications: Meds: Current Medications Acetaminophen (Tylenol) 650 mg PRN Q6HRS PRN PO PAIN / TEMP Last administered on 03/28/18at 14:17; Start 03/27/18 at 15:00 Multi-Ingredient Ointment (Analgesic [place]) 1 sofia PRN QID PRN TP MUSCLE PAIN; Start 03/27/18 at 15:00 Al Hydroxide/Mg Hydroxide (Mylanta Plus Xs) 15 ml PRN AFTMEALHC PRN PO DYSPEPSIA; Start 03/27/18 at 15:00 Magnesium Hydroxide (Milk Of Magnesia) 2,400 mg PRN QHS PRN PO CONSTIPATION Last administered on 03/31/18at 20:11; Start 03/27/18 at 15:00 Sertraline HCl (Zoloft) 100 mg DAILY PO Last administered on 03/28/18at 08:56; Start 03/28/18 at 09:00; Stop 03/28/18 at 16:45; Status DC Donepezil HCl (Aricept) 5 mg QHS PO Last administered on 04/01/18at 19:25; Start 03/27/18 at 21:00 Risperidone (RisperDAL) 0.25 mg BID PO Last administered on 03/30/18at 07:49; Start 03/27/18 at 21:00; Stop 03/30/18 at 11:22; Status DC Clopidogrel Bisulfate (Plavix) 75 mg DAILY PO Last administered on 04/01/18at 10:00; Start 03/28/18 at 09:00 Hydrochlorothiazide (Hydrodiuril) 25 mg DAILY PO Last administered on 09:59; Start 03/28/18 at 09:00 Isosorbide Mononitrate (Imdur) 30 mg DAILY PO Last administered on 04/01/18 09:59; Start 03/28/18 at 09:00 Lisinopril (Prinivil) 20 mg BID PO Last administered on 04/01/18 19:26; Start 03/27/18 at 21:00 Nitroglycerin (Nitrostat) 0.4 mg PRN Q5MIN PRN SL CHEST PAIN; Start 03/27/18 at 16:00 Aspirin (Aspirin Enteric Coated) 81 mg DAILY PO Last administered on 09:59; Start 03/28/18 at 09:00 Calcium Carbonate/ Glycine (Oscal) 500 mg DAILY PO Last administered on at 10:00; Start 03/28/18 at 09:00 Carvedilol (Coreg) 25 mg BIDWMEALS PO Last administered on 04/01/18 16:34; Start 03/27/18 at 17:00 Triamcinolone Acetonide (Kenalog) 1 sofia PRN BID PRN TP RASH; Start 03/27/18 at 16:15 Warfarin Sodium (Coumadin) 3.75 mg QMWF PO Last administered on 03/31/18at 16: 27; Start 03/29/18 at 16:00; Stop 04/01/18 at 16:04; Status DC Warfarin Sodium (Coumadin) 7.5 mg QTUTHSASU PO Last administered on 03/30/18at 16:14; Start 03/28/18 at 16:00; Stop 04/01/18 at 16:04; Status DC Warfarin Sodium (Coumadin Per Physician) 1 each PRN DAILY PRN MC SEE COMMENTS; Start 03/28/18 at 07:30; Status Cancel Vitamin D (Vitamin D3) 50,000 unit WEEKLY PO Last administered on 03/29/18at 09 :09; Start 03/29/18 at 09:00 Sertraline HCl (Zoloft) 75 mg DAILY PO Last administered on 04/01/18 10:00; Start 03/29/18 at 09:00 Bupropion HCl (Wellbutrin Xl) 150 mg DAILY PO Last administered on 12/22/18at 10:00; Start 03/29/18 at 09:00 Risperidone (RisperDAL) 0.25 mg QHS PO Last administered on 04/01/18 19:25; Start 03/30/18 at 21:00 Polyethylene Glycol (miraLAX) 17 gm DAILY PO Last administered on 04/01/18 10 :02; Start 04/01/18 at 09:00 Warfarin Sodium (Coumadin Per Pharmacy) 1 each PRN DAILY PRN MC SEE COMMENTS Last administered on 04/01/18at 16:19; Start 04/01/18 at 16:00 Warfarin Sodium (Coumadin) 7.5 mg DAILY16 PO Last administered on 04/01/18at 16 :34; Start 04/01/18 at 16:30 Active Scripts Active Reported Warfarin Sodium 3 Mg Tablet 3.25 Mg PO MON, WED, TUE Warfarin Sodium 7.5 Mg Tablet 7.5 Mg PO TUE, , , Triamcinolone Acetonide 15 Gm Cream..g. 15 Gm TP PRN BID PRN Zoloft (Sertraline Hcl) 100 Mg Tablet 100 Mg PO DAILY Risperidone 0.5 Mg Tablet 0.25 Mg PO BID NITROGLYCERIN SubLingual (Nitroglycerin) 0.4 Mg Tab.subl 0.4 Mg SL PRN Q5MIN PRN Lisinopril 20 Mg Tablet 20 Mg PO BID Isosorbide Mononitrate Er (Isosorbide Mononitrate) 30 Mg Tab.er.24h 30 Mg PO DAILY Hydrochlorothiazide Tablet (Hydrochlorothiazide) 25 Mg Tablet 25 Mg PO DAILY Donepezil Hcl 5 Mg Tablet 5 Mg PO QHS Clopidogrel (Clopidogrel Bisulfate) 75 Mg Tablet 75 Mg PO DAILY Carvedilol 25 Mg Tablet 25 Mg PO BIDWMEALS Calcium Carbonate 600 Mg Tablet 600 Mg PO DAILY Aspirin Ec (Aspirin) 81 Mg Tablet.dr 81 Mg PO DAILY I have reviewed the current psychotropics carefully including drug interactions. Risk benefit ratio favors no change other than as noted in my dictated progress note. Diagnosis: Problems: (1) Confusion (2) Depression (3) Anxiety disorder (4) Impulse control disorder (5) Suicidal ideation (6) Alzheimer's dementia (7) Major neurocognitive disorder, due to vascular disease, with behavioral disturbance, mild SHERRY MATHIS MD Apr 01, 2018 22:03
[2018-04-02 06:15] VITALS: BP 156/76
[2018-04-02] MEDS: hydroCHLOROthiazide 25 MG TABLET PO SCH (09:44)
[2018-04-02] MEDS: CARVEDILOL 12.5 MG TABLET PO SCH ×2 (09:44→16:20)
[2018-04-02] MEDS: ASPIRIN ENTERIC COATED 81 MG TABLET.DR. PO SCH (09:44)
[2018-04-02] MEDS: ISOSORBIDE MONONITRATE ER 30 MG TAB.ER.24H PO SCH (09:45)
[2018-04-02] MEDS: CALCIUM CARBONATE 500 MG TABLET PO SCH (09:45)
[2018-04-02] MEDS: CLOPIDOGREL BISULFATE 75 MG TABLET PO SCH (09:45)
[2018-04-02] MEDS: POLYETHYLENE GLYCOL 3350 17 GM PACKET. PO SCH (09:45)
[2018-04-02] MEDS: buPROPion XL 150 MG TAB.ER.24H PO SCH (09:46)
[2018-04-02] MEDS: LISINOPRIL 20 MG TABLET PO SCH ×2 (09:46→21:19)
[2018-04-02] MEDS: SERTRALINE 50 MG TABLET. PO SCH (09:46)
[2018-04-02 11:19] LABS: BASO % 1 % (0-3); EOS # 0.2 x10^3/uL (0.0-0.7); EOS % 4 % (0-3); HEMATOCRIT 37.1 % (36.0-47.0); HEMOGLOBIN 12.3 g/dL (12.0-15.5); LYMPH # 0.9 x10^3/uL (1.0-4.8); LYMPH % 24 % (24-48); MEAN CORPUSCULAR HEMOGLOBIN 31 pg (25-35); MEAN CORPUSCULAR HGB CONC 33 g/dL (31-37); MEAN CORPUSCULAR VOLUME 94 fL (79-100); MONO # 0.5 x10^3/uL (0.0-1.1); MONO % 12 % (0-9); NEUT # 2.2 x10^3uL (1.8-7.7); NEUT % 59 % (31-73); PLATELET COUNT 127 x10^3/uL (140-400); RED BLOOD COUNT 3.93 x10^6/uL (3.50-5.40); RED CELL DISTRIBUTION WIDTH 15.1 % (11.5-14.5); WHITE BLOOD COUNT 3.8 x10^3/uL (4.0-11.0)
[2018-04-02 11:28] LABS: ALBUMIN 3.2 g/dL (3.4-5.0); CALCIUM 8.5 mg/dL (8.5-10.1); CREATININE 1.2 mg/dL (0.6-1.0); GFR 42.4; MAGNESIUM 2.1 mg/dL (1.8-2.4); TOTAL BILIRUBIN 0.3 mg/dL (0.2-1.0); TOTAL PROTEIN 6.3 g/dL (6.4-8.2)
--- NOTE | 2018-04-02 14:23 | PN ---
DATE: 04/01/2018 This is a late entry 04/01/2018 covers elements not covered in my initial note. SUBJECTIVE: I met with the patient at length in her room. She slept 5-1/4 hours previous night. She is quite verbal, talking about wanting a dietitian to help her lose weight and put a dietary c consultant. I have discussed with nursing staff. REVIEW OF SYSTEMS: No CV, , ENT system symptoms on review. Ambulation impaired with walker. Poor vision due to macular degeneration. MENTAL STATUS EXAM: Reasonably oriented. Speech coherent, abstraction fair, computation impaired, and language function intact. Mood and affect remain somewhat anxious. LABORATORY DATA: Reviewed. IMPRESSION: Unchanged from initial note. PLAN: No change other than above. SHERRY MATHIS MD DR: KIRSTEN/comfort JOB#: [id number] / [id number]
--- NOTE | 2018-04-02 14:26 | PN ---
DATE: 03/31/2018 PSYCHIATRIC PROGRESS NOTE This late entry 03/31/2018 covers elements, not covered in my initial note. SUBJECTIVE: I met with the patient in the evening. The patient slept 8 hours previous evening. She has been compliant with medications. Doing "quite well" per nursing report. I met with her at great length in her room. She talked about her isolation from her children and grandchildren, but is understanding of this. I talked about her cat "luis miguel" who she treats like a child of her own, wakes up at 4:00 in the morning to feed the cat amongst other things. She is very verbal, distressed with macular degeneration, unable to do attila and embroidery like she used to. REVIEW OF SYSTEMS: Ambulation impaired with walker, some poor vision due to macular degeneration. No CV, , GI, ENT system symptoms on review. MENTAL STATUS EXAM: Oriented to herself and situation. Speech is coherent, abstraction fair, computation impaired, language function intact. Mood and affect still somewhat anxious, dysphoric, but improved. LABORATORY DATA: Reviewed. IMPRESSION: Major depressive disorder, recurrent; major neurocognitive disorder, Alzheimer, vascular with depression. PLAN: No change from initial note for now. SHERRY MATHIS MD DR: KIRSTEN/comfort JOB#: [id number] / [id number]
[2018-04-02 16:13] VITALS: BP 109/74
[2018-04-02] MEDS: WARFARIN 7.5 MG TABLET. PO SCH (16:20)
[2018-04-02] MEDS ORDERED: MINERAL OIL/PETROLATUM TOPICAL CREAM 113GM JAR. TP PRN (17:45)
[2018-04-02] MEDS: DONEPEZIL HCL 5 MG TABLET. PO SCH (21:18)
[2018-04-02] MEDS: risperiDONE 0.25 MG TABLET. PO SCH (21:19)
--- NOTE | 2018-04-02 22:49 | PDOC ---
Exam Note: Donal Note: Please also refer to the separate dictated note~for this date of service dictated separately.~Patient seen individually. Discussed the patient with Nursing staff reviewed the chart.~Reviewed interim history and current functioning. Reviewed vital signs,~Labs/ Radiology~and current medications noted below. Continue current treatment with the changes noted in the dictated addendum note Assessment: Vital Signs: Vital Signs Date Time Temp Pulse Resp B/P (MAP) Pulse Ox O2 Delivery O2 Flow Rate FiO2 04/02/18 21:19 72 109/74 04/02/18 16:13 98.0 18 95 04/02/18 06:15 Room Air I&O Intake and Output 04/02/18 07:01 Intake Total 600 ml Balance 600 ml Intake Oral 600 ml Labs: Laboratory Tests Test 04/02/18 10:20 White Blood Count 3.8 x10^3/uL (4.0-11.0) L Red Blood Count 3.93 x10^6/uL (3.50-5.40) Hemoglobin 12.3 g/dL (12.0-15.5) Hematocrit 37.1 % (36.0-47.0) Mean Corpuscular Volume 94 fL (79-100) Mean Corpuscular Hemoglobin 31 pg (25-35) Mean Corpuscular Hemoglobin Concent 33 g/dL (31-37) Red Cell Distribution Width 15.1 % (11.5-14.5) H Platelet Count 127 x10^3/uL (140-400) L Neutrophils (%) (Auto) 59 % (31-73) Lymphocytes (%) (Auto) 24 % (24-48) Monocytes (%) (Auto) 12 % (0-9) H Eosinophils (%) (Auto) 4 % (0-3) H Basophils (%) (Auto) 1 % (0-3) Neutrophils # (Auto) 2.2 x10^3uL (1.8-7.7) Lymphocytes # (Auto) 0.9 x10^3/uL (1.0-4.8) L Monocytes # (Auto) 0.5 x10^3/uL (0.0-1.1) Eosinophils # (Auto) 0.2 x10^3/uL (0.0-0.7) Basophils # (Auto) 0.0 x10^3/uL (0.0-0.2) Sodium Level 144 mmol/L (136-145) Potassium Level 4.0 mmol/L (3.5-5.1) Chloride Level 105 mmol/L (98-107) Carbon Dioxide Level 31 mmol/L (21-32) Anion Gap 8 (6-14) Blood Urea Nitrogen 27 mg/dL (7-20) H Creatinine 1.2 mg/dL (0.6-1.0) H Estimated GFR (Cockcroft-Gault) 42.4 BUN/Creatinine Ratio 23 (6-20) H Glucose Level 106 mg/dL (70-99) H Calcium Level 8.5 mg/dL (8.5-10.1) Magnesium Level 2.1 mg/dL (1.8-2.4) Total Bilirubin 0.3 mg/dL (0.2-1.0) Aspartate Amino Transferase (AST) 19 U/L (15-37) Alanine Aminotransferase (ALT) 22 U/L (14-59) Alkaline Phosphatase 72 U/L (46-116) Total Protein 6.3 g/dL (6.4-8.2) L Albumin 3.2 g/dL (3.4-5.0) L Albumin/Globulin Ratio 1.0 (1.0-1.7) Current Medications: Meds: Current Medications Acetaminophen (Tylenol) 650 mg PRN Q6HRS PRN PO PAIN / TEMP Last administered on 03/28/18at 14:17; Start 03/27/18 at 15:00 Multi-Ingredient Ointment (Analgesic [place]) 1 sofia PRN QID PRN TP MUSCLE PAIN; Start 03/27/18 at 15:00 Al Hydroxide/Mg Hydroxide (Mylanta Plus Xs) 15 ml PRN AFTMEALHC PRN PO DYSPEPSIA; Start 03/27/18 at 15:00 Magnesium Hydroxide (Milk Of Magnesia) 2,400 mg PRN QHS PRN PO CONSTIPATION Last administered on 03/31/18at 20:11; Start 03/27/18 at 15:00 Sertraline HCl (Zoloft) 100 mg DAILY PO Last administered on 03/28/18at 08:56; Start 03/28/18 at 09:00; Stop 03/28/18 at 16:45; Status DC Donepezil HCl (Aricept) 5 mg QHS PO Last administered on 04/02/18 21:18; Start 03/27/18 at 21:00 Risperidone (RisperDAL) 0.25 mg BID PO Last administered on 03/30/18 07:49; Start 03/27/18 at 21:00; Stop 03/30/18 at 11:22; Status DC Clopidogrel Bisulfate (Plavix) 75 mg DAILY PO Last administered on 04/02/18 09:45; Start 03/28/18 at 09:00 Hydrochlorothiazide (Hydrodiuril) 25 mg DAILY PO Last administered on 09:44; Start 03/28/18 at 09:00 Isosorbide Mononitrate (Imdur) 30 mg DAILY PO Last administered on 04/02/18 09:45; Start 03/28/18 at 09:00 Lisinopril (Prinivil) 20 mg BID PO Last administered on 04/02/18 21:19; Start 03/27/18 at 21:00 Nitroglycerin (Nitrostat) 0.4 mg PRN Q5MIN PRN SL CHEST PAIN; Start 03/27/18 at 16:00 Aspirin (Aspirin Enteric Coated) 81 mg DAILY PO Last administered on 09:44; Start 03/28/18 at 09:00 Calcium Carbonate/ Glycine (Oscal) 500 mg DAILY PO Last administered on 09:45; Start 03/28/18 at 09:00 Carvedilol (Coreg) 25 mg BIDWMEALS PO Last administered on 04/02/18 16:20; Start 03/27/18 at 17:00 Triamcinolone Acetonide (Kenalog) 1 sofia PRN BID PRN TP RASH; Start 03/27/18 at 16:15 Warfarin Sodium (Coumadin) 3.75 mg QMWF PO Last administered on 03/31/18 16: 27; Start 03/29/18 at 16:00; Stop 04/01/18 at 16:04; Status DC Warfarin Sodium (Coumadin) 7.5 mg QTUTHSASU PO Last administered on 03/30/18 16:14; Start 03/28/18 at 16:00; Stop 04/01/18 at 16:04; Status DC Warfarin Sodium (Coumadin Per Physician) 1 each PRN DAILY PRN MC SEE COMMENTS; Start 03/28/18 at 07:30; Status Cancel Vitamin D (Vitamin D3) 50,000 unit WEEKLY PO Last administered on 03/29/18at 09 :09; Start 03/29/18 at 09:00 Sertraline HCl (Zoloft) 75 mg DAILY PO Last administered on 04/02/18 09:46; Start 03/29/18 at 09:00 Bupropion HCl (Wellbutrin Xl) 150 mg DAILY PO Last administered on 04/02/18 09:46; Start 03/29/18 at 09:00 Risperidone (RisperDAL) 0.25 mg QHS PO Last administered on 04/02/18at 21:19; Start 03/30/18 at 21:00 Polyethylene Glycol (miraLAX) 17 gm DAILY PO Last administered on 04/01/18at 10 :02; Start 04/01/18 at 09:00 Warfarin Sodium (Coumadin Per Pharmacy) 1 each PRN DAILY PRN MC SEE COMMENTS Last administered on 04/01/18at 16:19; Start 04/01/18 at 16:00 Warfarin Sodium (Coumadin) 7.5 mg DAILY16 PO Last administered on 04/02/18at 16 :20; Start 04/01/18 at 16:30 Artificial Tears (Refresh Classic) 1 drop QID PRN OU DRY EYE; Start 04/02/18 at 17:45 Multi-Ingred Cream/Lotion/Oil/ Oint (Hydrocerin) 1 sofia QID PRN TP DRY SKIN / SCALING; Start 04/02/18 at 17:45 Active Scripts Active Reported Warfarin Sodium 3 Mg Tablet 3.25 Mg PO MON, WED, TUE Warfarin Sodium 7.5 Mg Tablet 7.5 Mg PO TUE, , , Triamcinolone Acetonide 15 Gm Cream..g. 15 Gm TP PRN BID PRN Zoloft (Sertraline Hcl) 100 Mg Tablet 100 Mg PO DAILY Risperidone 0.5 Mg Tablet 0.25 Mg PO BID NITROGLYCERIN SubLingual (Nitroglycerin) 0.4 Mg Tab.subl 0.4 Mg SL PRN Q5MIN PRN Lisinopril 20 Mg Tablet 20 Mg PO BID Isosorbide Mononitrate Er (Isosorbide Mononitrate) 30 Mg Tab.er.24h 30 Mg PO DAILY Hydrochlorothiazide Tablet (Hydrochlorothiazide) 25 Mg Tablet 25 Mg PO DAILY Donepezil Hcl 5 Mg Tablet 5 Mg PO QHS Clopidogrel (Clopidogrel Bisulfate) 75 Mg Tablet 75 Mg PO DAILY Carvedilol 25 Mg Tablet 25 Mg PO BIDWMEALS Calcium Carbonate 600 Mg Tablet 600 Mg PO DAILY Aspirin Ec (Aspirin) 81 Mg Tablet. 81 Mg PO DAILY I have reviewed the current psychotropics carefully including drug interactions. Risk benefit ratio favors no change other than as noted in my dictated progress note. Diagnosis: Problems: (1) Confusion (2) Depression (3) Anxiety disorder (4) Impulse control disorder (5) Suicidal ideation (6) Alzheimer's dementia (7) Major neurocognitive disorder, due to vascular disease, with behavioral disturbance, mild SHERRY MATHIS MD Apr 02, 2018 22:49
[2018-04-03 06:24] VITALS: BP 160/78
[2018-04-03] MEDS: CALCIUM CARBONATE 500 MG TABLET PO SCH (08:15)
[2018-04-03] MEDS: CLOPIDOGREL BISULFATE 75 MG TABLET PO SCH (08:15)
[2018-04-03] MEDS: CARVEDILOL 12.5 MG TABLET PO SCH ×2 (08:15→16:46)
[2018-04-03] MEDS: LISINOPRIL 20 MG TABLET PO SCH ×2 (08:15→20:30)
[2018-04-03] MEDS: hydroCHLOROthiazide 25 MG TABLET PO SCH (08:15)
[2018-04-03] MEDS: SERTRALINE 50 MG TABLET. PO SCH (08:16)
[2018-04-03] MEDS: ASPIRIN ENTERIC COATED 81 MG TABLET.DR. PO SCH (08:16)
[2018-04-03] MEDS: buPROPion XL 150 MG TAB.ER.24H PO SCH (08:16)
[2018-04-03] MEDS: ISOSORBIDE MONONITRATE ER 30 MG TAB.ER.24H PO SCH (08:16)
[2018-04-03] MEDS: POLYETHYLENE GLYCOL 3350 17 GM PACKET. PO SCH (08:17)
[2018-04-03] MEDS: POLYVINYL ALCOHOL/POVIDONE/PF OPHTH SOLUTION DROPERETTE. OU PRN ×2 (08:17→23:54)
[2018-04-03] MEDS ORDERED: WARFARIN 5 MG TABLET. PO ONE (16:00)
[2018-04-03 16:11] VITALS: BP 109/50
[2018-04-03 16:44] VITALS: BP 106/67
--- NOTE | 2018-04-03 18:52 | PDOC ---
Exam Note: Donal Note: Please also refer to the separate dictated note~for this date of service dictated separately.~Patient seen individually. Discussed the patient with Nursing staff reviewed the chart.~Reviewed interim history and current functioning. Reviewed vital signs,~Labs/ Radiology~and current medications noted below. Continue current treatment with the changes noted in the dictated addendum note Assessment: Vital Signs: Vital Signs Date Time Temp Pulse Resp B/P (MAP) Pulse Ox O2 Delivery O2 Flow Rate FiO2 04/03/18 16:46 70 106/67 04/03/18 16:44 Room Air 04/03/18 16:11 97.5 18 96 I&O Intake and Output 04/03/18 07:01 Intake Total 840 ml Balance 840 ml Intake Oral 840 ml Labs: Laboratory Tests Test 04/03/18 06:40 Prothrombin Time 18.4 SEC (9.4-11.4) H Prothrombin Time INR 1.9 (0.9-1.1) H Current Medications: Meds: Current Medications Acetaminophen (Tylenol) 650 mg PRN Q6HRS PRN PO PAIN / TEMP Last administered on 03/28/18at 14:17; Start 03/27/18 at 15:00 Multi-Ingredient Ointment (Analgesic [place]) 1 sofia PRN QID PRN TP MUSCLE PAIN; Start 03/27/18 at 15:00 Al Hydroxide/Mg Hydroxide (Mylanta Plus Xs) 15 ml PRN AFTMEALHC PRN PO DYSPEPSIA; Start 03/27/18 at 15:00 Magnesium Hydroxide (Milk Of Magnesia) 2,400 mg PRN QHS PRN PO CONSTIPATION Last administered on 03/31/18at 20:11; Start 03/27/18 at 15:00 Sertraline HCl (Zoloft) 100 mg DAILY PO Last administered on 03/28/18at 08:56; Start 03/28/18 at 09:00; Stop 03/28/18 at 16:45; Status DC Donepezil HCl (Aricept) 5 mg QHS PO Last administered on 04/02/18at 21:18; Start 03/27/18 at 21:00 Risperidone (RisperDAL) 0.25 mg BID PO Last administered on 03/30/18at 07:49; Start 03/27/18 at 21:00; Stop 03/30/18 at 11:22; Status DC Clopidogrel Bisulfate (Plavix) 75 mg DAILY PO Last administered on 04/03/18 08:15; Start 03/28/18 at 09:00 Hydrochlorothiazide (Hydrodiuril) 25 mg DAILY PO Last administered on at 08:15; Start 03/28/18 at 09:00 Isosorbide Mononitrate (Imdur) 30 mg DAILY PO Last administered on 04/03/18 08:16; Start 03/28/18 at 09:00 Lisinopril (Prinivil) 20 mg BID PO Last administered on 04/03/18 08:15; Start 03/27/18 at 21:00 Nitroglycerin (Nitrostat) 0.4 mg PRN Q5MIN PRN SL CHEST PAIN; Start 03/27/18 at 16:00 Aspirin (Aspirin Enteric Coated) 81 mg DAILY PO Last administered on at 08:16; Start 03/28/18 at 09:00 Calcium Carbonate/ Glycine (Oscal) 500 mg DAILY PO Last administered on at 08:15; Start 03/28/18 at 09:00 Carvedilol (Coreg) 25 mg BIDWMEALS PO Last administered on 04/03/18at 16:46; Start 03/27/18 at 17:00 Triamcinolone Acetonide (Kenalog) 1 sofia PRN BID PRN TP RASH; Start 03/27/18 at 16:15 Warfarin Sodium (Coumadin) 3.75 mg QMWF PO Last administered on 03/31/18at 16: 27; Start 03/29/18 at 16:00; Stop 04/01/18 at 16:04; Status DC Warfarin Sodium (Coumadin) 7.5 mg QTUTHSASU PO Last administered on 03/30/18at 16:14; Start 03/28/18 at 16:00; Stop 04/01/18 at 16:04; Status DC Warfarin Sodium (Coumadin Per Physician) 1 each PRN DAILY PRN MC SEE COMMENTS; Start 03/28/18 at 07:30; Status Cancel Vitamin D (Vitamin D3) 50,000 unit WEEKLY PO Last administered on 03/29/18at 09 :09; Start 03/29/18 at 09:00 Sertraline HCl (Zoloft) 75 mg DAILY PO Last administered on 04/03/18 08:16; Start 03/29/18 at 09:00 Bupropion HCl (Wellbutrin Xl) 150 mg DAILY PO Last administered on 04/03/18 08:16; Start 03/29/18 at 09:00 Risperidone (RisperDAL) 0.25 mg QHS PO Last administered on 04/02/18 21:19; Start 03/30/18 at 21:00 Polyethylene Glycol (miraLAX) 17 gm DAILY PO Last administered on 04/03/18 08 :17; Start 04/01/18 at 09:00 Warfarin Sodium (Coumadin Per Pharmacy) 1 each PRN DAILY PRN MC SEE COMMENTS Last administered on 04/03/18 09:55; Start 04/01/18 at 16:00 Warfarin Sodium (Coumadin) 7.5 mg DAILY16 PO Last administered on 04/02/18 16 :20; Start 04/01/18 at 16:30; Stop 04/03/18 at 09:48; Status DC Artificial Tears (Refresh Classic) 1 drop QID PRN OU DRY EYE Last administered on 04/03/18 08:17; Start 04/02/18 at 17:45 Multi-Ingred Cream/Lotion/Oil/ Oint (Hydrocerin) 1 sofia QID PRN TP DRY SKIN / SCALING; Start 04/02/18 at 17:45 Warfarin Sodium (Coumadin) 5 mg 1X WARF ONCE PO Last administered on 16:32; Start 04/03/18 at 16:00; Stop 04/03/18 at 16:01; Status DC Active Scripts Active Reported Warfarin Sodium 3 Mg Tablet 3.25 Mg PO MON, WED, TUE Warfarin Sodium 7.5 Mg Tablet 7.5 Mg PO TUE, , , Triamcinolone Acetonide 15 Gm Cream..g. 15 Gm TP PRN BID PRN Zoloft (Sertraline Hcl) 100 Mg Tablet 100 Mg PO DAILY Risperidone 0.5 Mg Tablet 0.25 Mg PO BID NITROGLYCERIN SubLingual (Nitroglycerin) 0.4 Mg Tab.subl 0.4 Mg SL PRN Q5MIN PRN Lisinopril 20 Mg Tablet 20 Mg PO BID Isosorbide Mononitrate Er (Isosorbide Mononitrate) 30 Mg Tab.er.24h 30 Mg PO DAILY Hydrochlorothiazide Tablet (Hydrochlorothiazide) 25 Mg Tablet 25 Mg PO DAILY Donepezil Hcl 5 Mg Tablet 5 Mg PO QHS Clopidogrel (Clopidogrel Bisulfate) 75 Mg Tablet 75 Mg PO DAILY Carvedilol 25 Mg Tablet 25 Mg PO BIDWMEALS Calcium Carbonate 600 Mg Tablet 600 Mg PO DAILY Aspirin Ec (Aspirin) 81 Mg Tablet. 81 Mg PO DAILY I have reviewed the current psychotropics carefully including drug interactions. Risk benefit ratio favors no change other than as noted in my dictated progress note. Diagnosis: Problems: (1) Confusion (2) Depression (3) Anxiety disorder (4) Impulse control disorder (5) Suicidal ideation (6) Alzheimer's dementia (7) Major neurocognitive disorder, due to vascular disease, with behavioral disturbance, mild SHERRY MATHIS MD Apr 03, 2018 18:52
[2018-04-03] MEDS: risperiDONE 0.25 MG TABLET. PO SCH (20:29)
[2018-04-03] MEDS: DONEPEZIL HCL 5 MG TABLET. PO SCH (20:30)
[2018-04-04 05:28] VITALS: BP 117/68
[2018-04-04 05:46] VITALS: BP 164/76
[2018-04-04] MEDS: CARVEDILOL 12.5 MG TABLET PO SCH ×2 (08:31→16:32)
[2018-04-04] MEDS: LISINOPRIL 20 MG TABLET PO SCH ×2 (08:31→20:43)
[2018-04-04] MEDS: ISOSORBIDE MONONITRATE ER 30 MG TAB.ER.24H PO SCH (08:32)
[2018-04-04] MEDS: ASPIRIN ENTERIC COATED 81 MG TABLET.DR. PO SCH (08:32)
[2018-04-04] MEDS: SERTRALINE 50 MG TABLET. PO SCH (08:32)
[2018-04-04] MEDS: hydroCHLOROthiazide 25 MG TABLET PO SCH (08:32)
[2018-04-04] MEDS: POLYVINYL ALCOHOL/POVIDONE/PF OPHTH SOLUTION DROPERETTE. OU PRN ×2 (08:32→19:16)
[2018-04-04] MEDS: POLYETHYLENE GLYCOL 3350 17 GM PACKET. PO SCH (08:32)
[2018-04-04] MEDS: CLOPIDOGREL BISULFATE 75 MG TABLET PO SCH (08:32)
[2018-04-04] MEDS: buPROPion XL 150 MG TAB.ER.24H PO SCH (08:32)
[2018-04-04] MEDS: CALCIUM CARBONATE 500 MG TABLET PO SCH (08:34)
[2018-04-04] MEDS ORDERED: WARFARIN 6 MG TABLET. PO ONE (16:00)
[2018-04-04 16:29] VITALS: BP 160/60
[2018-04-04 16:38] VITALS: BP 99/57
--- NOTE | 2018-04-04 17:18 | PN ---
DATE: 04/02/2018 PSYCHIATRIC PROGRESS NOTE This late entry 04/02/2018 covers elements not covered in my initial note. SUBJECTIVE: I met with the patient in the evening at length in her room. She slept 9-1/4 hours. Overall, she has had a good night, better day during the day. She does have short term memory deficits, somewhat depressed, but much more animated. Denies suicidal or homicidal ideation and has been more social. REVIEW OF SYSTEMS: Ambulation impaired with walker. No CV, , pulmonary, eye, ENT system symptoms on review. MENTAL STATUS EXAM: Oriented to herself and situation. Speech coherent, abstraction fair, computation impaired, language function intact, attention span short. Mood and affect is improved. LABORATORY DATA: Reviewed. IMPRESSION: Major depressive disorder, recurrent, cognitive disorder, unspecified. Rest unchanged. PLAN: No change from initial note. MAN Елена MATHIS MD DR: KIRSTEN/comfort JOB#: [id number] / [id number]
--- NOTE | 2018-04-04 17:21 | PN ---
DATE: 04/03/2018 This late entry 04/03/2018 covers elements not covered in my initial note. SUBJECTIVE: I met with the patient in the evening. The patient slept 8-3/4 hours previous night. She is alert, oriented x 4, but towards the evening, gets a little more forgetful of short term events. She is interactive with staff. Denies active suicidal ideation, somewhat pleasant, spends much time doing word searches. REVIEW OF SYSTEMS: Ambulation impaired with walker. No CV, , pulmonary, eye, ENT system symptoms on review. MENTAL STATUS EXAM: Oriented to herself and situation. Speech coherent, very verbal, pleasant. Abstraction fair, computation impaired, language function intact, attention span short. Mood and affect is improved. LABORATORY DATA: Reviewed. IMPRESSION: Major depressive disorder, recurrent, in partial remission; cognitive disorder, unspecified. PLAN: No change from initial note. MAN Елена MATHIS MD DR: KIRSTEN/comfort JOB#: [id number] / [id number]
--- NOTE | 2018-04-04 19:01 | PDOC ---
Exam Note: Donal Note: Please also refer to the separate dictated note~for this date of service dictated separately.~Patient seen individually. Discussed the patient with Nursing staff reviewed the chart.~Reviewed interim history and current functioning. Reviewed vital signs,~Labs/ Radiology~and current medications noted below. Continue current treatment with the changes noted in the dictated addendum note Assessment: Vital Signs: Vital Signs Date Time Temp Pulse Resp B/P (MAP) Pulse Ox O2 Delivery O2 Flow Rate FiO2 04/04/18 16:38 97.8 67 18 99/57 (71) 95 T-Tube I&O Intake and Output 04/04/18 07:01 Intake Total 1200 ml Balance 1200 ml Intake Oral 1200 ml Labs: Laboratory Tests Test 04/04/18 06:56 Prothrombin Time 18.4 SEC (9.4-11.4) H Prothrombin Time INR 1.9 (0.9-1.1) H Current Medications: Meds: Current Medications Acetaminophen (Tylenol) 650 mg PRN Q6HRS PRN PO PAIN / TEMP Last administered on 03/28/18at 14:17; Start 03/27/18 at 15:00 Multi-Ingredient Ointment (Analgesic [place]) 1 sofia PRN QID PRN TP MUSCLE PAIN; Start 03/27/18 at 15:00 Al Hydroxide/Mg Hydroxide (Mylanta Plus Xs) 15 ml PRN AFTMEALHC PRN PO DYSPEPSIA; Start 03/27/18 at 15:00 Magnesium Hydroxide (Milk Of Magnesia) 2,400 mg PRN QHS PRN PO CONSTIPATION Last administered on 03/31/18at 20:11; Start 03/27/18 at 15:00 Sertraline HCl (Zoloft) 100 mg DAILY PO Last administered on 03/28/18at 08:56; Start 03/28/18 at 09:00; Stop 03/28/18 at 16:45; Status DC Donepezil HCl (Aricept) 5 mg QHS PO Last administered on 04/03/18at 20:30; Start 03/27/18 at 21:00 Risperidone (RisperDAL) 0.25 mg BID PO Last administered on 03/30/18at 07:49; Start 03/27/18 at 21:00; Stop 03/30/18 at 11:22; Status DC Clopidogrel Bisulfate (Plavix) 75 mg DAILY PO Last administered on 04/04/18 08:32; Start 03/28/18 at 09:00 Hydrochlorothiazide (Hydrodiuril) 25 mg DAILY PO Last administered on 08:32; Start 03/28/18 at 09:00 Isosorbide Mononitrate (Imdur) 30 mg DAILY PO Last administered on 04/04/18 08:32; Start 03/28/18 at 09:00 Lisinopril (Prinivil) 20 mg BID PO Last administered on 04/04/18 08:31; Start 03/27/18 at 21:00 Nitroglycerin (Nitrostat) 0.4 mg PRN Q5MIN PRN SL CHEST PAIN; Start 03/27/18 at 16:00 Aspirin (Aspirin Enteric Coated) 81 mg DAILY PO Last administered on 08:32; Start 03/28/18 at 09:00 Calcium Carbonate/ Glycine (Oscal) 500 mg DAILY PO Last administered on 08:34; Start 03/28/18 at 09:00 Carvedilol (Coreg) 25 mg BIDWMEALS PO Last administered on 04/04/18 16:32; Start 03/27/18 at 17:00 Triamcinolone Acetonide (Kenalog) 1 sofia PRN BID PRN TP RASH; Start 03/27/18 at 16:15 Warfarin Sodium (Coumadin) 3.75 mg QMWF PO Last administered on 03/31/18 16: 27; Start 03/29/18 at 16:00; Stop 04/01/18 at 16:04; Status DC Warfarin Sodium (Coumadin) 7.5 mg QTUTHSASU PO Last administered on 03/30/18at 16:14; Start 03/28/18 at 16:00; Stop 04/01/18 at 16:04; Status DC Warfarin Sodium (Coumadin Per Physician) 1 each PRN DAILY PRN MC SEE COMMENTS; Start 03/28/18 at 07:30; Status Cancel Vitamin D (Vitamin D3) 50,000 unit WEEKLY PO Last administered on 03/29/18at 09 :09; Start 03/29/18 at 09:00 Sertraline HCl (Zoloft) 75 mg DAILY PO Last administered on 04/04/18 08:32; Start 03/29/18 at 09:00 Bupropion HCl (Wellbutrin Xl) 150 mg DAILY PO Last administered on 04/04/18 08:32; Start 03/29/18 at 09:00 Risperidone (RisperDAL) 0.25 mg QHS PO Last administered on 04/03/18 20:29; Start 03/30/18 at 21:00 Polyethylene Glycol (miraLAX) 17 gm DAILY PO Last administered on 04/04/18 08 :32; Start 04/01/18 at 09:00 Warfarin Sodium (Coumadin Per Pharmacy) 1 each PRN DAILY PRN MC SEE COMMENTS Last administered on 04/04/18 09:02; Start 04/01/18 at 16:00 Warfarin Sodium (Coumadin) 7.5 mg DAILY16 PO Last administered on 04/02/18 16 :20; Start 04/01/18 at 16:30; Stop 04/03/18 at 09:48; Status DC Artificial Tears (Refresh Classic) 1 drop QID PRN OU DRY EYE Last administered on 04/04/18 08:32; Start 04/02/18 at 17:45 Multi-Ingred Cream/Lotion/Oil/ Oint (Hydrocerin) 1 sofia QID PRN TP DRY SKIN / SCALING; Start 04/02/18 at 17:45 Warfarin Sodium (Coumadin) 5 mg 1X WARF ONCE PO Last administered on 16:32; Start 04/03/18 at 16:00; Stop 04/03/18 at 16:01; Status DC Warfarin Sodium (Coumadin) 6 mg 1X WARF ONCE PO Last administered on at 16:10; Start 04/04/18 at 16:00; Stop 04/04/18 at 16:01; Status DC Active Scripts Active Reported Warfarin Sodium 3 Mg Tablet 3.25 Mg PO MON, WED, FRI Warfarin Sodium 7.5 Mg Tablet 7.5 Mg PO TUE, , , Triamcinolone Acetonide 15 Gm Cream..g. 15 Gm TP PRN BID PRN Zoloft (Sertraline Hcl) 100 Mg Tablet 100 Mg PO DAILY Risperidone 0.5 Mg Tablet 0.25 Mg PO BID NITROGLYCERIN SubLingual (Nitroglycerin) 0.4 Mg Tab.subl 0.4 Mg SL PRN Q5MIN PRN Lisinopril 20 Mg Tablet 20 Mg PO BID Isosorbide Mononitrate Er (Isosorbide Mononitrate) 30 Mg Tab.er.24h 30 Mg PO DAILY Hydrochlorothiazide Tablet (Hydrochlorothiazide) 25 Mg Tablet 25 Mg PO DAILY Donepezil Hcl 5 Mg Tablet 5 Mg PO QHS Clopidogrel (Clopidogrel Bisulfate) 75 Mg Tablet 75 Mg PO DAILY Carvedilol 25 Mg Tablet 25 Mg PO BIDWMEALS Calcium Carbonate 600 Mg Tablet 600 Mg PO DAILY Aspirin Ec (Aspirin) 81 Mg Tablet.dr 81 Mg PO DAILY I have reviewed the current psychotropics carefully including drug interactions. Risk benefit ratio favors no change other than as noted in my dictated progress note. Diagnosis: Problems: (1) Confusion (2) Depression (3) Anxiety disorder (4) Impulse control disorder (5) Suicidal ideation (6) Alzheimer's dementia (7) Major neurocognitive disorder, due to vascular disease, with behavioral disturbance, mild SHERRY MATHIS MD Apr 04, 2018 19:01
[2018-04-04] MEDS: DONEPEZIL HCL 5 MG TABLET. PO SCH (19:15)
[2018-04-04] MEDS: risperiDONE 0.25 MG TABLET. PO SCH (19:16)
[2018-04-05 06:03] VITALS: BP 152/60
[2018-04-05] MEDS: ASPIRIN ENTERIC COATED 81 MG TABLET.DR. PO SCH (08:19)
[2018-04-05] MEDS: SERTRALINE 50 MG TABLET. PO SCH (08:19)
[2018-04-05] MEDS: CLOPIDOGREL BISULFATE 75 MG TABLET PO SCH (08:20)
[2018-04-05] MEDS: CARVEDILOL 12.5 MG TABLET PO SCH ×2 (08:20→16:57)
[2018-04-05] MEDS: hydroCHLOROthiazide 25 MG TABLET PO SCH (08:20)
[2018-04-05] MEDS: LISINOPRIL 20 MG TABLET PO SCH ×2 (08:20→19:50)
[2018-04-05] MEDS: buPROPion XL 150 MG TAB.ER.24H PO SCH (08:21)
[2018-04-05] MEDS: CALCIUM CARBONATE 500 MG TABLET PO SCH (08:21)
[2018-04-05] MEDS: ISOSORBIDE MONONITRATE ER 30 MG TAB.ER.24H PO SCH (08:21)
[2018-04-05] MEDS: POLYETHYLENE GLYCOL 3350 17 GM PACKET. PO SCH (08:21)
[2018-04-05] MEDS: POLYVINYL ALCOHOL/POVIDONE/PF OPHTH SOLUTION DROPERETTE. OU PRN (08:22)
[2018-04-05] MEDS: CHOLECALCIFEROL (VITAMIN D3) 50,000 UNIT CAPSULE PO SCH (08:23)
[2018-04-05] MEDS ORDERED: WARFARIN 6 MG TABLET. PO ONE (16:00)
[2018-04-05 16:46] VITALS: BP 123/71
[2018-04-05] MEDS ORDERED: traZODone 50 MG TABLET. PO PRN (19:00)
[2018-04-05] MEDS: DONEPEZIL HCL 5 MG TABLET. PO SCH (19:50)
[2018-04-05] MEDS: POLYVINYL ALCOHOL/POVIDONE/PF OPHTH SOLUTION DROPERETTE. OU SCH (22:12)
--- NOTE | 2018-04-05 22:33 | PN ---
DATE: 04/04/2018 PSYCHIATRIC PROGRESS NOTE This late entry 04/04/2018 covers elements not covered in my initial note. SUBJECTIVE: I met with the patient in the evening. The patient slept 5-1/4 hours previous night. She has been pleasant, cooperative, very verbal as I met with her at some length. No suicidal ideation. Mood is still somewhat dysphoric. No active psychotic symptoms. REVIEW OF SYSTEMS: Ambulation impaired with walker. No CV, , pulmonary, eye system symptoms on review. MENTAL STATUS EXAM: Oriented to herself and situation. Speech is coherent, some latency. Abstraction fair, computation impaired, language function intact, attention span short. Mood and affect has improved. LABORATORY DATA: Reviewed. IMPRESSION: Unchanged from initial note. PLAN: No change from initial note. MAN Елена MATHIS MD DR: KIRSTEN/comfort JOB#: [id number] / [id number]
--- NOTE | 2018-04-05 22:46 | PDOC ---
Exam Note: Donal Note: Please also refer to the separate dictated note~for this date of service dictated separately.~Patient seen individually. Discussed the patient with Nursing staff reviewed the chart.~Reviewed interim history and current functioning. Reviewed vital signs,~Labs/ Radiology~and current medications noted below. Continue current treatment with the changes noted in the dictated addendum note Assessment: Vital Signs: Vital Signs Date Time Temp Pulse Resp B/P (MAP) Pulse Ox O2 Delivery O2 Flow Rate FiO2 04/05/18 19:50 65 123/71 04/05/18 16:46 97.4 18 97 04/04/18 16:38 T-Tube I&O Intake and Output 04/05/18 07:01 Intake Total 1680 ml Balance 1680 ml Intake Oral 1680 ml # Bowel Movements 1 Labs: Laboratory Tests Test 04/05/18 07:04 Prothrombin Time 20.1 SEC (9.4-11.4) H Prothrombin Time INR 2.1 (0.9-1.1) H Current Medications: Meds: Current Medications Acetaminophen (Tylenol) 650 mg PRN Q6HRS PRN PO PAIN / TEMP Last administered on 03/28/18at 14:17; Start 03/27/18 at 15:00 Multi-Ingredient Ointment (Analgesic [place]) 1 sofia PRN QID PRN TP MUSCLE PAIN; Start 03/27/18 at 15:00 Al Hydroxide/Mg Hydroxide (Mylanta Plus Xs) 15 ml PRN AFTMEALHC PRN PO DYSPEPSIA; Start 03/27/18 at 15:00 Magnesium Hydroxide (Milk Of Magnesia) 2,400 mg PRN QHS PRN PO CONSTIPATION Last administered on 03/31/18at 20:11; Start 03/27/18 at 15:00 Sertraline HCl (Zoloft) 100 mg DAILY PO Last administered on 03/28/18at 08:56; Start 03/28/18 at 09:00; Stop 03/28/18 at 16:45; Status DC Donepezil HCl (Aricept) 5 mg QHS PO Last administered on 04/05/18at 19:50; Start 03/27/18 at 21:00 Risperidone (RisperDAL) 0.25 mg BID PO Last administered on 03/30/18at 07:49; Start 03/27/18 at 21:00; Stop 03/30/18 at 11:22; Status DC Clopidogrel Bisulfate (Plavix) 75 mg DAILY PO Last administered on 04/05/18 08:20; Start 03/28/18 at 09:00 Hydrochlorothiazide (Hydrodiuril) 25 mg DAILY PO Last administered on 08:20; Start 03/28/18 at 09:00 Isosorbide Mononitrate (Imdur) 30 mg DAILY PO Last administered on 04/05/18at 08:21; Start 03/28/18 at 09:00 Lisinopril (Prinivil) 20 mg BID PO Last administered on 04/05/18 19:50; Start 03/27/18 at 21:00 Nitroglycerin (Nitrostat) 0.4 mg PRN Q5MIN PRN SL CHEST PAIN; Start 03/27/18 at 16:00 Aspirin (Aspirin Enteric Coated) 81 mg DAILY PO Last administered on 08:19; Start 03/28/18 at 09:00 Calcium Carbonate/ Glycine (Oscal) 500 mg DAILY PO Last administered on 08:21; Start 03/28/18 at 09:00 Carvedilol (Coreg) 25 mg BIDWMEALS PO Last administered on 04/05/18at 16:57; Start 03/27/18 at 17:00 Triamcinolone Acetonide (Kenalog) 1 sofia PRN BID PRN TP RASH; Start 03/27/18 at 16:15 Warfarin Sodium (Coumadin) 3.75 mg QMWF PO Last administered on 03/31/18at 16: 27; Start 03/29/18 at 16:00; Stop 04/01/18 at 16:04; Status DC Warfarin Sodium (Coumadin) 7.5 mg QTUTHSASU PO Last administered on 03/30/18at 16:14; Start 03/28/18 at 16:00; Stop 04/01/18 at 16:04; Status DC Warfarin Sodium (Coumadin Per Physician) 1 each PRN DAILY PRN MC SEE COMMENTS; Start 03/28/18 at 07:30; Status Cancel Vitamin D (Vitamin D3) 50,000 unit WEEKLY PO Last administered on 04/05/18at 08 :23; Start 03/29/18 at 09:00 Sertraline HCl (Zoloft) 75 mg DAILY PO Last administered on 04/05/18at 08:19; Start 03/29/18 at 09:00 Bupropion HCl (Wellbutrin Xl) 150 mg DAILY PO Last administered on 04/05/18at 08:21; Start 03/29/18 at 09:00 Risperidone (RisperDAL) 0.25 mg QHS PO Last administered on 04/04/18at 19:16; Start 03/30/18 at 21:00; Stop 04/05/18 at 18:55; Status DC Polyethylene Glycol (miraLAX) 17 gm DAILY PO Last administered on 04/05/18at 08 :21; Start 04/01/18 at 09:00 Warfarin Sodium (Coumadin Per Pharmacy) 1 each PRN DAILY PRN MC SEE COMMENTS Last administered on 04/05/18at 14:05; Start 04/01/18 at 16:00 Warfarin Sodium (Coumadin) 7.5 mg DAILY16 PO Last administered on 04/02/18at 16 :20; Start 04/01/18 at 16:30; Stop 04/03/18 at 09:48; Status DC Artificial Tears (Refresh Classic) 1 drop QID PRN OU DRY EYE Last administered on 04/05/18at 08:22; Start 04/02/18 at 17:45 Multi-Ingred Cream/Lotion/Oil/ Oint (Hydrocerin) 1 sofia QID PRN TP DRY SKIN / SCALING; Start 04/02/18 at 17:45 Warfarin Sodium (Coumadin) 5 mg 1X WARF ONCE PO Last administered on at 16:32; Start 04/03/18 at 16:00; Stop 04/03/18 at 16:01; Status DC Warfarin Sodium (Coumadin) 6 mg 1X WARF ONCE PO Last administered on at 16:10; Start 04/04/18 at 16:00; Stop 04/04/18 at 16:01; Status DC Warfarin Sodium (Coumadin) 6 mg 1X WARF ONCE PO Last administered on at 16:57; Start 04/05/18 at 16:00; Stop 04/05/18 at 16:01; Status DC Trazodone HCl (Desyrel) 50 mg PRN QHS PRN PO INSOMNIA; Start 12/26/18 at 19:00 Multivitamins/ Minerals (I-Yung) 1 tab DAILY PO ; Start 04/06/18 at 09:00 Artificial Tears (Refresh Classic) 1 drop BID OU ; Start 04/05/18 at 22:30 Active Scripts Active Reported Warfarin Sodium 3 Mg Tablet 3.25 Mg PO MON, WED, TUE Warfarin Sodium 7.5 Mg Tablet 7.5 Mg PO SUN, , , SA Triamcinolone Acetonide 15 Gm Cream..g. 15 Gm TP PRN BID PRN Zoloft (Sertraline Hcl) 100 Mg Tablet 100 Mg PO DAILY Risperidone 0.5 Mg Tablet 0.25 Mg PO BID NITROGLYCERIN SubLingual (Nitroglycerin) 0.4 Mg Tab.subl 0.4 Mg SL PRN Q5MIN PRN Lisinopril 20 Mg Tablet 20 Mg PO BID Isosorbide Mononitrate Er (Isosorbide Mononitrate) 30 Mg Tab.er.24h 30 Mg PO DAILY Hydrochlorothiazide Tablet (Hydrochlorothiazide) 25 Mg Tablet 25 Mg PO DAILY Donepezil Hcl 5 Mg Tablet 5 Mg PO QHS Clopidogrel (Clopidogrel Bisulfate) 75 Mg Tablet 75 Mg PO DAILY Carvedilol 25 Mg Tablet 25 Mg PO BIDWMEALS Calcium Carbonate 600 Mg Tablet 600 Mg PO DAILY Aspirin Ec (Aspirin) 81 Mg Tablet.dr 81 Mg PO DAILY I have reviewed the current psychotropics carefully including drug interactions. Risk benefit ratio favors no change other than as noted in my dictated progress note. Diagnosis: Problems: (1) Confusion (2) Depression (3) Anxiety disorder (4) Impulse control disorder (5) Suicidal ideation (6) Alzheimer's dementia (7) Major neurocognitive disorder, due to vascular disease, with behavioral disturbance, mild SHERRY MATHIS MD Apr 05, 2018 22:46
[2018-04-06 05:45] VITALS: BP 136/49
[2018-04-06] MEDS: CALCIUM CARBONATE 500 MG TABLET PO SCH (08:58)
[2018-04-06] MEDS: POLYVINYL ALCOHOL/POVIDONE/PF OPHTH SOLUTION DROPERETTE. OU SCH ×2 (08:58→20:25)
[2018-04-06] MEDS: SERTRALINE 50 MG TABLET. PO SCH (08:58)
[2018-04-06] MEDS: buPROPion XL 150 MG TAB.ER.24H PO SCH (08:58)
[2018-04-06] MEDS: ASPIRIN ENTERIC COATED 81 MG TABLET.DR. PO SCH (08:59)
[2018-04-06] MEDS: LISINOPRIL 20 MG TABLET PO SCH ×2 (08:59→20:20)
[2018-04-06] MEDS: hydroCHLOROthiazide 25 MG TABLET PO SCH (08:59)
[2018-04-06] MEDS: ISOSORBIDE MONONITRATE ER 30 MG TAB.ER.24H PO SCH (08:59)
[2018-04-06] MEDS: CLOPIDOGREL BISULFATE 75 MG TABLET PO SCH ×2 (08:59→16:23)
[2018-04-06] MEDS: CARVEDILOL 12.5 MG TABLET PO SCH ×2 (09:00→16:23)
[2018-04-06] MEDS: POLYETHYLENE GLYCOL 3350 17 GM PACKET. PO SCH ×2 (09:01→09:13)
[2018-04-06] MEDS: MULTIVITAMIN I-VITE TABLET. PO SCH (09:01)
[2018-04-06] MEDS: POLYVINYL ALCOHOL/POVIDONE/PF OPHTH SOLUTION DROPERETTE. OU PRN (14:34)
[2018-04-06] MEDS ORDERED: WARFARIN 6 MG TABLET. PO ONE (16:00)
[2018-04-06 16:09] VITALS: BP 135/69
[2018-04-06] MEDS: DONEPEZIL HCL 5 MG TABLET. PO SCH (20:20)
--- NOTE | 2018-04-06 22:42 | PDOC ---
Exam Note: Donal Note: Please also refer to the separate dictated note~for this date of service dictated separately.~Patient seen individually. Discussed the patient with Nursing staff reviewed the chart.~Reviewed interim history and current functioning. Reviewed vital signs,~Labs/ Radiology~and current medications noted below. Continue current treatment with the changes noted in the dictated addendum note Assessment: Vital Signs: Vital Signs Date Time Temp Pulse Resp B/P (MAP) Pulse Ox O2 Delivery O2 Flow Rate FiO2 04/06/18 20:20 64 135/69 04/06/18 16:09 97.7 20 94 04/04/18 16:38 T-Tube I&O Intake and Output 04/06/18 07:01 Intake Total 1180 ml Balance 1180 ml Intake Oral 1180 ml # Bowel Movements 1 Labs: Laboratory Tests Test 04/06/18 06:29 Prothrombin Time 22.2 SEC (9.4-11.4) H Prothrombin Time INR 2.3 (0.9-1.1) H Current Medications: Meds: Current Medications Acetaminophen (Tylenol) 650 mg PRN Q6HRS PRN PO PAIN / TEMP Last administered on 03/28/18at 14:17; Start 03/27/18 at 15:00 Multi-Ingredient Ointment (Analgesic [place]) 1 sofia PRN QID PRN TP MUSCLE PAIN; Start 03/27/18 at 15:00 Al Hydroxide/Mg Hydroxide (Mylanta Plus Xs) 15 ml PRN AFTMEALHC PRN PO DYSPEPSIA; Start 03/27/18 at 15:00 Magnesium Hydroxide (Milk Of Magnesia) 2,400 mg PRN QHS PRN PO CONSTIPATION Last administered on 03/31/18at 20:11; Start 03/27/18 at 15:00 Sertraline HCl (Zoloft) 100 mg DAILY PO Last administered on 03/28/18at 08:56; Start 03/28/18 at 09:00; Stop 03/28/18 at 16:45; Status DC Donepezil HCl (Aricept) 5 mg QHS PO Last administered on 04/06/18at 20:20; Start 03/27/18 at 21:00 Risperidone (RisperDAL) 0.25 mg BID PO Last administered on 03/30/18at 07:49; Start 03/27/18 at 21:00; Stop 03/30/18 at 11:22; Status DC Clopidogrel Bisulfate (Plavix) 75 mg DAILY PO Last administered on 04/06/18 16:23; Start 03/28/18 at 09:00 Hydrochlorothiazide (Hydrodiuril) 25 mg DAILY PO Last administered on 08:59; Start 03/28/18 at 09:00 Isosorbide Mononitrate (Imdur) 30 mg DAILY PO Last administered on 04/06/18at 08:59; Start 03/28/18 at 09:00 Lisinopril (Prinivil) 20 mg BID PO Last administered on 04/06/18 20:20; Start 03/27/18 at 21:00 Nitroglycerin (Nitrostat) 0.4 mg PRN Q5MIN PRN SL CHEST PAIN; Start 03/27/18 at 16:00 Aspirin (Aspirin Enteric Coated) 81 mg DAILY PO Last administered on at 08:59; Start 03/28/18 at 09:00 Calcium Carbonate/ Glycine (Oscal) 500 mg DAILY PO Last administered on 08:58; Start 03/28/18 at 09:00 Carvedilol (Coreg) 25 mg BIDWMEALS PO Last administered on 04/06/18 16:23; Start 03/27/18 at 17:00 Triamcinolone Acetonide (Kenalog) 1 sofia PRN BID PRN TP RASH; Start 03/27/18 at 16:15 Warfarin Sodium (Coumadin) 3.75 mg QMWF PO Last administered on 03/31/18at 16: 27; Start 03/29/18 at 16:00; Stop 04/01/18 at 16:04; Status DC Warfarin Sodium (Coumadin) 7.5 mg QTUTHSASU PO Last administered on 03/30/18at 16:14; Start 03/28/18 at 16:00; Stop 04/01/18 at 16:04; Status DC Warfarin Sodium (Coumadin Per Physician) 1 each PRN DAILY PRN MC SEE COMMENTS; Start 03/28/18 at 07:30; Status Cancel Vitamin D (Vitamin D3) 50,000 unit WEEKLY PO Last administered on 04/05/18at 08 :23; Start 03/29/18 at 09:00 Sertraline HCl (Zoloft) 75 mg DAILY PO Last administered on 04/06/18at 08:58; Start 03/29/18 at 09:00 Bupropion HCl (Wellbutrin Xl) 150 mg DAILY PO Last administered on 04/06/18at 08:58; Start 03/29/18 at 09:00 Risperidone (RisperDAL) 0.25 mg QHS PO Last administered on 04/04/18at 19:16; Start 03/30/18 at 21:00; Stop 04/05/18 at 18:55; Status DC Polyethylene Glycol (miraLAX) 17 gm DAILY PO Last administered on 04/05/18at 08 :21; Start 04/01/18 at 09:00 Warfarin Sodium (Coumadin Per Pharmacy) 1 each PRN DAILY PRN MC SEE COMMENTS Last administered on 04/06/18at 09:28; Start 04/01/18 at 16:00 Warfarin Sodium (Coumadin) 7.5 mg DAILY16 PO Last administered on 04/02/18at 16 :20; Start 04/01/18 at 16:30; Stop 04/03/18 at 09:48; Status DC Artificial Tears (Refresh Classic) 1 drop QID PRN OU DRY EYE Last administered on 04/06/18at 14:34; Start 04/02/18 at 17:45 Multi-Ingred Cream/Lotion/Oil/ Oint (Hydrocerin) 1 sofia QID PRN TP DRY SKIN / SCALING; Start 04/02/18 at 17:45 Warfarin Sodium (Coumadin) 5 mg 1X WARF ONCE PO Last administered on at 16:32; Start 04/03/18 at 16:00; Stop 04/03/18 at 16:01; Status DC Warfarin Sodium (Coumadin) 6 mg 1X WARF ONCE PO Last administered on at 16:10; Start 04/04/18 at 16:00; Stop 04/04/18 at 16:01; Status DC Warfarin Sodium (Coumadin) 6 mg 1X WARF ONCE PO Last administered on at 16:57; Start 04/05/18 at 16:00; Stop 04/05/18 at 16:01; Status DC Trazodone HCl (Desyrel) 50 mg PRN QHS PRN PO INSOMNIA; Start 12/26/18 at 19:00 Multivitamins/ Minerals (I-Yung) 1 tab DAILY PO Last administered on at 09:01; Start 04/06/18 at 09:00 Artificial Tears (Refresh Classic) 1 drop BID OU Last administered on at 20:25; Start 04/05/18 at 22:30 Warfarin Sodium (Coumadin) 6 mg 1X WARF ONCE PO Last administered on at 16:25; Start 04/06/18 at 16:00; Stop 04/06/18 at 16:01; Status DC Active Scripts Active Reported Warfarin Sodium 3 Mg Tablet 3.25 Mg PO MON, WED, TUE Warfarin Sodium 7.5 Mg Tablet 7.5 Mg PO TUE, , , Triamcinolone Acetonide 15 Gm Cream..g. 15 Gm TP PRN BID PRN Zoloft (Sertraline Hcl) 100 Mg Tablet 100 Mg PO DAILY Risperidone 0.5 Mg Tablet 0.25 Mg PO BID NITROGLYCERIN SubLingual (Nitroglycerin) 0.4 Mg Tab.subl 0.4 Mg SL PRN Q5MIN PRN Lisinopril 20 Mg Tablet 20 Mg PO BID Isosorbide Mononitrate Er (Isosorbide Mononitrate) 30 Mg Tab.er.24h 30 Mg PO DAILY Hydrochlorothiazide Tablet (Hydrochlorothiazide) 25 Mg Tablet 25 Mg PO DAILY Donepezil Hcl 5 Mg Tablet 5 Mg PO QHS Clopidogrel (Clopidogrel Bisulfate) 75 Mg Tablet 75 Mg PO DAILY Carvedilol 25 Mg Tablet 25 Mg PO BIDWMEALS Calcium Carbonate 600 Mg Tablet 600 Mg PO DAILY Aspirin Ec (Aspirin) 81 Mg Tablet. 81 Mg PO DAILY I have reviewed the current psychotropics carefully including drug interactions. Risk benefit ratio favors no change other than as noted in my dictated progress note. Diagnosis: Problems: (1) Confusion (2) Depression (3) Anxiety disorder (4) Impulse control disorder (5) Suicidal ideation (6) Alzheimer's dementia (7) Major neurocognitive disorder, due to vascular disease, with behavioral disturbance, SHERRY Torres MD Apr 06, 2018 22:42
[2018-04-07 06:01] VITALS: BP 121/54
--- NOTE | 2018-04-07 07:50 | PDOC ---
Exam Note: Donal Note: S/O: This is a late entry of 04/05/2018. This note covers elements not covered in my initial note. I met with the patient in the evening at length in her room. Patient slept five three quarter hours previous night. She has been awake, alert, reasonably oriented, more interactive in groups. No clear psychotic symptoms are noted and we will the Risperdal 0.25 mg p.o. h.s. She did sleep poorly and we will start trazodone 50 mg h.s. p.r.n. insomnia, repeat x1. ROS: Ambulation impaired with walker. No CV, GI/, Eye, ENT, pulmonary system symptoms on review. MSE: Oriented to herself and situation. Speech is coherent. Abstraction is fair. Computation impaired. Language function is intact. Attention span is short. Mood and affect remains somewhat anxious at times. Poorly animated but otherwise appropriate. No suicidal or homicidal ideation. Labs: Reviewed. Imp: Unchanged from initial note. Plan: No change from initial note. Assessment: Vital Signs: Vital Signs Date Time Temp Pulse Resp B/P (MAP) Pulse Ox O2 Delivery O2 Flow Rate FiO2 04/07/18 06:01 97.8 59 18 121/54 (76) 90 04/04/18 16:38 T-Tube I&O Intake and Output 04/07/18 07:01 Intake Total 960 ml Balance 960 ml Intake Oral 960 ml Labs: Laboratory Tests Test 04/07/18 06:40 Prothrombin Time 27.0 SEC (9.4-11.4) H Prothrombin Time INR 2.8 (0.9-1.1) H Current Medications: Meds: Current Medications Acetaminophen (Tylenol) 650 mg PRN Q6HRS PRN PO PAIN / TEMP Last administered on 03/28/18at 14:17; Start 03/27/18 at 15:00 Multi-Ingredient Ointment (Analgesic [place]) 1 sofia PRN QID PRN TP MUSCLE PAIN; Start 03/27/18 at 15:00 Al Hydroxide/Mg Hydroxide (Mylanta Plus Xs) 15 ml PRN AFTMEALHC PRN PO DYSPEPSIA; Start 03/27/18 at 15:00 Magnesium Hydroxide (Milk Of Magnesia) 2,400 mg PRN QHS PRN PO CONSTIPATION Last administered on 03/31/18 20:11; Start 03/27/18 at 15:00 Sertraline HCl (Zoloft) 100 mg DAILY PO Last administered on 03/28/18 08:56; Start 03/28/18 at 09:00; Stop 03/28/18 at 16:45; Status DC Donepezil HCl (Aricept) 5 mg QHS PO Last administered on 04/06/18 20:20; Start 03/27/18 at 21:00 Risperidone (RisperDAL) 0.25 mg BID PO Last administered on 03/30/18 07:49; Start 03/27/18 at 21:00; Stop 03/30/18 at 11:22; Status DC Clopidogrel Bisulfate (Plavix) 75 mg DAILY PO Last administered on 04/06/18 16:23; Start 03/28/18 at 09:00 Hydrochlorothiazide (Hydrodiuril) 25 mg DAILY PO Last administered on 08:59; Start 03/28/18 at 09:00 Isosorbide Mononitrate (Imdur) 30 mg DAILY PO Last administered on 04/06/18 08:59; Start 03/28/18 at 09:00 Lisinopril (Prinivil) 20 mg BID PO Last administered on 04/06/18 20:20; Start 03/27/18 at 21:00 Nitroglycerin (Nitrostat) 0.4 mg PRN Q5MIN PRN SL CHEST PAIN; Start 03/27/18 at 16:00 Aspirin (Aspirin Enteric Coated) 81 mg DAILY PO Last administered on 08:59; Start 03/28/18 at 09:00 Calcium Carbonate/ Glycine (Oscal) 500 mg DAILY PO Last administered on 08:58; Start 03/28/18 at 09:00 Carvedilol (Coreg) 25 mg BIDWMEALS PO Last administered on 04/06/18 16:23; Start 03/27/18 at 17:00 Triamcinolone Acetonide (Kenalog) 1 sofia PRN BID PRN TP RASH; Start 03/27/18 at 16:15 Warfarin Sodium (Coumadin) 3.75 mg QMWF PO Last administered on 03/31/18 16: 27; Start 03/29/18 at 16:00; Stop 04/01/18 at 16:04; Status DC Warfarin Sodium (Coumadin) 7.5 mg QTUTHSASU PO Last administered on 03/30/18at 16:14; Start 03/28/18 at 16:00; Stop 04/01/18 at 16:04; Status DC Warfarin Sodium (Coumadin Per Physician) 1 each PRN DAILY PRN MC SEE COMMENTS; Start 03/28/18 at 07:30; Status Cancel Vitamin D (Vitamin D3) 50,000 unit WEEKLY PO Last administered on 04/05/18at 08 :23; Start 03/29/18 at 09:00 Sertraline HCl (Zoloft) 75 mg DAILY PO Last administered on 04/06/18at 08:58; Start 03/29/18 at 09:00 Bupropion HCl (Wellbutrin Xl) 150 mg DAILY PO Last administered on 04/06/18 08:58; Start 03/29/18 at 09:00 Risperidone (RisperDAL) 0.25 mg QHS PO Last administered on 04/04/18at 19:16; Start 03/30/18 at 21:00; Stop 04/05/18 at 18:55; Status DC Polyethylene Glycol (miraLAX) 17 gm DAILY PO Last administered on 04/05/18 08 :21; Start 04/01/18 at 09:00 Warfarin Sodium (Coumadin Per Pharmacy) 1 each PRN DAILY PRN MC SEE COMMENTS Last administered on 04/06/18 09:28; Start 04/01/18 at 16:00 Warfarin Sodium (Coumadin) 7.5 mg DAILY16 PO Last administered on 04/02/18at 16 :20; Start 04/01/18 at 16:30; Stop 04/03/18 at 09:48; Status DC Artificial Tears (Refresh Classic) 1 drop QID PRN OU DRY EYE Last administered on 04/06/18at 14:34; Start 04/02/18 at 17:45 Multi-Ingred Cream/Lotion/Oil/ Oint (Hydrocerin) 1 sofia QID PRN TP DRY SKIN / SCALING; Start 04/02/18 at 17:45 Warfarin Sodium (Coumadin) 5 mg 1X WARF ONCE PO Last administered on at 16:32; Start 04/03/18 at 16:00; Stop 04/03/18 at 16:01; Status DC Warfarin Sodium (Coumadin) 6 mg 1X WARF ONCE PO Last administered on at 16:10; Start 04/04/18 at 16:00; Stop 04/04/18 at 16:01; Status DC Warfarin Sodium (Coumadin) 6 mg 1X WARF ONCE PO Last administered on at 16:57; Start 04/05/18 at 16:00; Stop 04/05/18 at 16:01; Status DC Trazodone HCl (Desyrel) 50 mg PRN QHS PRN PO INSOMNIA; Start 04/05/18 at 19:00 Multivitamins/ Minerals (I-Yung) 1 tab DAILY PO Last administered on at 09:01; Start 04/06/18 at 09:00 Artificial Tears (Refresh Classic) 1 drop BID OU Last administered on at 20:25; Start 04/05/18 at 22:30 Warfarin Sodium (Coumadin) 6 mg 1X WARF ONCE PO Last administered on at 16:25; Start 04/06/18 at 16:00; Stop 04/06/18 at 16:01; Status DC Active Scripts Active Reported Warfarin Sodium 3 Mg Tablet 3.25 Mg PO MON, WED, TUE Warfarin Sodium 7.5 Mg Tablet 7.5 Mg PO TUE, , , Triamcinolone Acetonide 15 Gm Cream..g. 15 Gm TP PRN BID PRN Zoloft (Sertraline Hcl) 100 Mg Tablet 100 Mg PO DAILY Risperidone 0.5 Mg Tablet 0.25 Mg PO BID NITROGLYCERIN SubLingual (Nitroglycerin) 0.4 Mg Tab.subl 0.4 Mg SL PRN Q5MIN PRN Lisinopril 20 Mg Tablet 20 Mg PO BID Isosorbide Mononitrate Er (Isosorbide Mononitrate) 30 Mg Tab.er.24h 30 Mg PO DAILY Hydrochlorothiazide Tablet (Hydrochlorothiazide) 25 Mg Tablet 25 Mg PO DAILY Donepezil Hcl 5 Mg Tablet 5 Mg PO QHS Clopidogrel (Clopidogrel Bisulfate) 75 Mg Tablet 75 Mg PO DAILY Carvedilol 25 Mg Tablet 25 Mg PO BIDWMEALS Calcium Carbonate 600 Mg Tablet 600 Mg PO DAILY Aspirin Ec (Aspirin) 81 Mg Tablet.dr 81 Mg PO DAILY I have reviewed the current psychotropics carefully including drug interactions. Risk benefit ratio favors no change other than as noted in my dictated progress note. Diagnosis: Problems: (1) Confusion (2) Depression (3) Anxiety disorder (4) Impulse control disorder (5) Suicidal ideation (6) Alzheimer's dementia (7) Major neurocognitive disorder, due to vascular disease, with behavioral disturbance, mild SHERRY MATHIS MD Apr 07, 2018 07:50
[2018-04-07] MEDS: MULTIVITAMIN I-VITE TABLET. PO SCH (08:52)
[2018-04-07] MEDS: POLYETHYLENE GLYCOL 3350 17 GM PACKET. PO SCH (08:52)
[2018-04-07] MEDS: CALCIUM CARBONATE 500 MG TABLET PO SCH (08:53)
[2018-04-07] MEDS: CARVEDILOL 12.5 MG TABLET PO SCH ×2 (08:53→16:25)
[2018-04-07] MEDS: ASPIRIN ENTERIC COATED 81 MG TABLET.DR. PO SCH (08:53)
[2018-04-07] MEDS: SERTRALINE 50 MG TABLET. PO SCH (08:53)
[2018-04-07] MEDS: hydroCHLOROthiazide 25 MG TABLET PO SCH (08:53)
[2018-04-07] MEDS: POLYVINYL ALCOHOL/POVIDONE/PF OPHTH SOLUTION DROPERETTE. OU SCH ×2 (08:54→19:37)
[2018-04-07] MEDS: ISOSORBIDE MONONITRATE ER 30 MG TAB.ER.24H PO SCH (08:54)
[2018-04-07] MEDS: LISINOPRIL 20 MG TABLET PO SCH ×2 (08:54→19:37)
[2018-04-07] MEDS: buPROPion XL 150 MG TAB.ER.24H PO SCH (08:57)
[2018-04-07] MEDS ORDERED: WARFARIN 5 MG TABLET. PO ONE (16:00)
[2018-04-07 16:37] VITALS: BP 119/66
[2018-04-07] MEDS: DONEPEZIL HCL 5 MG TABLET. PO SCH (19:37)
--- NOTE | 2018-04-07 20:49 | PN ---
DATE: 04/06/2018 PSYCHIATRIC PROGRESS NOTE This late entry 04/06/2018 covers elements not covered in my initial note. SUBJECTIVE: I met with the patient in the evening. The patient slept 8-1/4 hours previous evening. She is quite animated, verbal as I met with her, not overtly psychotic, still anxious, dysphoric, but improved. She spends much time in the day room. REVIEW OF SYSTEMS: Ambulation impaired with walker. No CV, , pulmonary, eye, ENT system symptoms on review. Reliability varies. MENTAL STATUS EXAM: Oriented to herself, situation. Speech has some latency, coherent. Abstraction fair, computation impaired, language function intact, attention span short. Mood and affect showing improvement. No suicidal or homicidal ideation. LABORATORY DATA: Reviewed. IMPRESSION: Major depressive disorder, recurrent, in partial remission. Rest unchanged; cognitive disorder, unspecified. PLAN: No change from initial note. SHERRY MATHIS MD DR: KIRSTEN/comfort JOB#: [id number] / [id number]
--- NOTE | 2018-04-07 22:51 | PDOC ---
Exam Note: Donal Note: Please also refer to the separate dictated note~for this date of service dictated separately.~Patient seen individually. Discussed the patient with Nursing staff reviewed the chart.~Reviewed interim history and current functioning. Reviewed vital signs,~Labs/ Radiology~and current medications noted below. Continue current treatment with the changes noted in the dictated addendum note Assessment: Vital Signs: Vital Signs Date Time Temp Pulse Resp B/P (MAP) Pulse Ox O2 Delivery O2 Flow Rate FiO2 04/07/18 19:37 58 119/66 04/07/18 16:37 97.6 18 96 Room Air I&O Intake and Output 04/07/18 07:01 Intake Total 960 ml Balance 960 ml Intake Oral 960 ml Labs: Laboratory Tests Test 04/07/18 06:40 Prothrombin Time 27.0 SEC (9.4-11.4) H Prothrombin Time INR 2.8 (0.9-1.1) H Current Medications: Meds: Current Medications Acetaminophen (Tylenol) 650 mg PRN Q6HRS PRN PO PAIN / TEMP Last administered on 03/28/18at 14:17; Start 03/27/18 at 15:00 Multi-Ingredient Ointment (Analgesic [place]) 1 sofia PRN QID PRN TP MUSCLE PAIN; Start 03/27/18 at 15:00 Al Hydroxide/Mg Hydroxide (Mylanta Plus Xs) 15 ml PRN AFTMEALHC PRN PO DYSPEPSIA; Start 03/27/18 at 15:00 Magnesium Hydroxide (Milk Of Magnesia) 2,400 mg PRN QHS PRN PO CONSTIPATION Last administered on 03/31/18at 20:11; Start 03/27/18 at 15:00 Sertraline HCl (Zoloft) 100 mg DAILY PO Last administered on 03/28/18at 08:56; Start 03/28/18 at 09:00; Stop 03/28/18 at 16:45; Status DC Donepezil HCl (Aricept) 5 mg QHS PO Last administered on 04/07/18at 19:37; Start 03/27/18 at 21:00 Risperidone (RisperDAL) 0.25 mg BID PO Last administered on 03/30/18at 07:49; Start 03/27/18 at 21:00; Stop 03/30/18 at 11:22; Status DC Clopidogrel Bisulfate (Plavix) 75 mg DAILY PO Last administered on 04/06/18 16:23; Start 03/28/18 at 09:00 Hydrochlorothiazide (Hydrodiuril) 25 mg DAILY PO Last administered on 08:53; Start 03/28/18 at 09:00 Isosorbide Mononitrate (Imdur) 30 mg DAILY PO Last administered on 04/07/18 08:54; Start 03/28/18 at 09:00 Lisinopril (Prinivil) 20 mg BID PO Last administered on 04/07/18 19:37; Start 03/27/18 at 21:00 Nitroglycerin (Nitrostat) 0.4 mg PRN Q5MIN PRN SL CHEST PAIN; Start 03/27/18 at 16:00 Aspirin (Aspirin Enteric Coated) 81 mg DAILY PO Last administered on 08:53; Start 03/28/18 at 09:00 Calcium Carbonate/ Glycine (Oscal) 500 mg DAILY PO Last administered on 08:53; Start 03/28/18 at 09:00 Carvedilol (Coreg) 25 mg BIDWMEALS PO Last administered on 04/07/18 16:25; Start 03/27/18 at 17:00 Triamcinolone Acetonide (Kenalog) 1 sofia PRN BID PRN TP RASH; Start 03/27/18 at 16:15 Warfarin Sodium (Coumadin) 3.75 mg QMWF PO Last administered on 03/31/18 16: 27; Start 03/29/18 at 16:00; Stop 04/01/18 at 16:04; Status DC Warfarin Sodium (Coumadin) 7.5 mg QTUTHSASU PO Last administered on 03/30/18 16:14; Start 03/28/18 at 16:00; Stop 04/01/18 at 16:04; Status DC Warfarin Sodium (Coumadin Per Physician) 1 each PRN DAILY PRN MC SEE COMMENTS; Start 03/28/18 at 07:30; Status Cancel Vitamin D (Vitamin D3) 50,000 unit WEEKLY PO Last administered on 04/05/18at 08 :23; Start 03/29/18 at 09:00 Sertraline HCl (Zoloft) 75 mg DAILY PO Last administered on 04/07/18 08:53; Start 03/29/18 at 09:00 Bupropion HCl (Wellbutrin Xl) 150 mg DAILY PO Last administered on 04/07/18 08:57; Start 03/29/18 at 09:00 Risperidone (RisperDAL) 0.25 mg QHS PO Last administered on 04/04/18at 19:16; Start 03/30/18 at 21:00; Stop 04/05/18 at 18:55; Status DC Polyethylene Glycol (miraLAX) 17 gm DAILY PO Last administered on 04/07/18 08 :52; Start 04/01/18 at 09:00 Warfarin Sodium (Coumadin Per Pharmacy) 1 each PRN DAILY PRN MC SEE COMMENTS Last administered on 04/07/18 10:36; Start 04/01/18 at 16:00 Warfarin Sodium (Coumadin) 7.5 mg DAILY16 PO Last administered on 04/02/18at 16 :20; Start 04/01/18 at 16:30; Stop 04/03/18 at 09:48; Status DC Artificial Tears (Refresh Classic) 1 drop QID PRN OU DRY EYE Last administered on 04/06/18at 14:34; Start 04/02/18 at 17:45 Multi-Ingred Cream/Lotion/Oil/ Oint (Hydrocerin) 1 sofia QID PRN TP DRY SKIN / SCALING; Start 04/02/18 at 17:45 Warfarin Sodium (Coumadin) 5 mg 1X WARF ONCE PO Last administered on at 16:32; Start 04/03/18 at 16:00; Stop 04/03/18 at 16:01; Status DC Warfarin Sodium (Coumadin) 6 mg 1X WARF ONCE PO Last administered on at 16:10; Start 04/04/18 at 16:00; Stop 04/04/18 at 16:01; Status DC Warfarin Sodium (Coumadin) 6 mg 1X WARF ONCE PO Last administered on at 16:57; Start 04/05/18 at 16:00; Stop 04/05/18 at 16:01; Status DC Trazodone HCl (Desyrel) 50 mg PRN QHS PRN PO INSOMNIA; Start 04/05/18 at 19:00 Multivitamins/ Minerals (I-Yung) 1 tab DAILY PO Last administered on at 08:52; Start 04/06/18 at 09:00 Artificial Tears (Refresh Classic) 1 drop BID OU Last administered on at 19:37; Start 04/05/18 at 22:30 Warfarin Sodium (Coumadin) 6 mg 1X WARF ONCE PO Last administered on at 16:25; Start 04/06/18 at 16:00; Stop 04/06/18 at 16:01; Status DC Warfarin Sodium (Coumadin) 5 mg 1X WARF ONCE PO Last administered on at 16:20; Start 04/07/18 at 16:00; Stop 04/07/18 at 16:02; Status DC Active Scripts Active Reported Warfarin Sodium 3 Mg Tablet 3.25 Mg PO TUE, TUE, TUE Warfarin Sodium 7.5 Mg Tablet 7.5 Mg PO TUE, , , Triamcinolone Acetonide 15 Gm Cream..g. 15 Gm TP PRN BID PRN Zoloft (Sertraline Hcl) 100 Mg Tablet 100 Mg PO DAILY Risperidone 0.5 Mg Tablet 0.25 Mg PO BID NITROGLYCERIN SubLingual (Nitroglycerin) 0.4 Mg Tab.subl 0.4 Mg SL PRN Q5MIN PRN Lisinopril 20 Mg Tablet 20 Mg PO BID Isosorbide Mononitrate Er (Isosorbide Mononitrate) 30 Mg Tab.er.24h 30 Mg PO DAILY Hydrochlorothiazide Tablet (Hydrochlorothiazide) 25 Mg Tablet 25 Mg PO DAILY Donepezil Hcl 5 Mg Tablet 5 Mg PO QHS Clopidogrel (Clopidogrel Bisulfate) 75 Mg Tablet 75 Mg PO DAILY Carvedilol 25 Mg Tablet 25 Mg PO BIDWMEALS Calcium Carbonate 600 Mg Tablet 600 Mg PO DAILY Aspirin Ec (Aspirin) 81 Mg Tablet.dr 81 Mg PO DAILY I have reviewed the current psychotropics carefully including drug interactions. Risk benefit ratio favors no change other than as noted in my dictated progress note. Diagnosis: Problems: (1) Confusion (2) Depression (3) Anxiety disorder (4) Impulse control disorder (5) Suicidal ideation (6) Alzheimer's dementia (7) Major neurocognitive disorder, due to vascular disease, with behavioral disturbance, mild DELFINA,SHERRY Anaya MD Apr 07, 2018 22:51
[2018-04-08 05:41] VITALS: BP 154/64
[2018-04-08] MEDS: CARVEDILOL 12.5 MG TABLET PO SCH ×2 (08:00→16:56)
[2018-04-08 09:30] LABS: BASO % 1 % (0-3); EOS # 0.2 x10^3/uL (0.0-0.7); EOS % 5 % (0-3); HEMATOCRIT 37.3 % (36.0-47.0); HEMOGLOBIN 12.3 g/dL (12.0-15.5); LYMPH % 24 % (24-48); MEAN CORPUSCULAR HEMOGLOBIN 31 pg (25-35); MEAN CORPUSCULAR HGB CONC 33 g/dL (31-37); MEAN CORPUSCULAR VOLUME 94 fL (79-100); MONO # 0.4 x10^3/uL (0.0-1.1); MONO % 10 % (0-9); NEUT # 2.5 x10^3uL (1.8-7.7); NEUT % 61 % (31-73); PLATELET COUNT 132 x10^3/uL (140-400); RED BLOOD COUNT 3.97 x10^6/uL (3.50-5.40); RED CELL DISTRIBUTION WIDTH 14.8 % (11.5-14.5); WHITE BLOOD COUNT 4.1 x10^3/uL (4.0-11.0)
[2018-04-08] MEDS: POLYVINYL ALCOHOL/POVIDONE/PF OPHTH SOLUTION DROPERETTE. OU SCH ×2 (09:42→20:08)
[2018-04-08] MEDS: MULTIVITAMIN I-VITE TABLET. PO SCH (09:43)
[2018-04-08] MEDS: hydroCHLOROthiazide 25 MG TABLET PO SCH (09:43)
[2018-04-08] MEDS: ASPIRIN ENTERIC COATED 81 MG TABLET.DR. PO SCH (09:43)
[2018-04-08] MEDS: POLYETHYLENE GLYCOL 3350 17 GM PACKET. PO SCH (09:44)
[2018-04-08] MEDS: CLOPIDOGREL BISULFATE 75 MG TABLET PO SCH (09:44)
[2018-04-08] MEDS: ISOSORBIDE MONONITRATE ER 30 MG TAB.ER.24H PO SCH (09:44)
[2018-04-08] MEDS: CALCIUM CARBONATE 500 MG TABLET PO SCH (09:44)
[2018-04-08 09:45] LABS: ALBUMIN 3.3 g/dL (3.4-5.0); CALCIUM 8.5 mg/dL (8.5-10.1); CREATININE 1.3 mg/dL (0.6-1.0); GFR 38.7; TOTAL BILIRUBIN 0.3 mg/dL (0.2-1.0); TOTAL PROTEIN 6.5 g/dL (6.4-8.2)
[2018-04-08] MEDS: SERTRALINE 50 MG TABLET. PO SCH (09:45)
[2018-04-08] MEDS: LISINOPRIL 20 MG TABLET PO SCH ×2 (09:45→20:08)
[2018-04-08] MEDS: buPROPion XL 150 MG TAB.ER.24H PO SCH (09:45)
[2018-04-08 15:44] VITALS: BP 126/67
[2018-04-08] MEDS ORDERED: WARFARIN 5 MG TABLET. PO ONE (16:00)
[2018-04-08] MEDS: DONEPEZIL HCL 5 MG TABLET. PO SCH (20:07)
--- NOTE | 2018-04-08 22:01 | PDOC ---
Exam Note: Donal Note: Please also refer to the separate dictated note~for this date of service dictated separately.~Patient seen individually. Discussed the patient with Nursing staff reviewed the chart.~Reviewed interim history and current functioning. Reviewed vital signs,~Labs/ Radiology~and current medications noted below. Continue current treatment with the changes noted in the dictated addendum note Assessment: Vital Signs: Vital Signs Date Time Temp Pulse Resp B/P (MAP) Pulse Ox O2 Delivery O2 Flow Rate FiO2 04/08/18 20:08 63 126/67 04/08/18 15:44 98.0 20 95 Room Air I&O Intake and Output 04/08/18 07:01 Intake Total 960 ml Balance 960 ml Intake Oral 960 ml Labs: Laboratory Tests Test 04/08/18 07:00 04/08/18 09:10 Prothrombin Time 27.9 SEC (9.4-11.4) H Prothrombin Time INR 2.9 (0.9-1.1) H White Blood Count 4.1 x10^3/uL (4.0-11.0) Red Blood Count 3.97 x10^6/uL (3.50-5.40) Hemoglobin 12.3 g/dL (12.0-15.5) Hematocrit 37.3 % (36.0-47.0) Mean Corpuscular Volume 94 fL (79-100) Mean Corpuscular Hemoglobin 31 pg (25-35) Mean Corpuscular Hemoglobin Concent 33 g/dL (31-37) Red Cell Distribution Width 14.8 % (11.5-14.5) H Platelet Count 132 x10^3/uL (140-400) L Neutrophils (%) (Auto) 61 % (31-73) Lymphocytes (%) (Auto) 24 % (24-48) Monocytes (%) (Auto) 10 % (0-9) H Eosinophils (%) (Auto) 5 % (0-3) H Basophils (%) (Auto) 1 % (0-3) Neutrophils # (Auto) 2.5 x10^3uL (1.8-7.7) Lymphocytes # (Auto) 1.0 x10^3/uL (1.0-4.8) Monocytes # (Auto) 0.4 x10^3/uL (0.0-1.1) Eosinophils # (Auto) 0.2 x10^3/uL (0.0-0.7) Basophils # (Auto) 0.0 x10^3/uL (0.0-0.2) Sodium Level 141 mmol/L (136-145) Potassium Level 4.0 mmol/L (3.5-5.1) Chloride Level 103 mmol/L (98-107) Carbon Dioxide Level 31 mmol/L (21-32) Anion Gap 7 (6-14) Blood Urea Nitrogen 28 mg/dL (7-20) H Creatinine 1.3 mg/dL (0.6-1.0) H Estimated GFR (Cockcroft-Gault) 38.7 BUN/Creatinine Ratio 22 (6-20) H Glucose Level 88 mg/dL (70-99) Calcium Level 8.5 mg/dL (8.5-10.1) Total Bilirubin 0.3 mg/dL (0.2-1.0) Aspartate Amino Transferase (AST) 20 U/L (15-37) Alanine Aminotransferase (ALT) 23 U/L (14-59) Alkaline Phosphatase 76 U/L (46-116) Total Protein 6.5 g/dL (6.4-8.2) Albumin 3.3 g/dL (3.4-5.0) L Albumin/Globulin Ratio 1.0 (1.0-1.7) Current Medications: Meds: Current Medications Acetaminophen (Tylenol) 650 mg PRN Q6HRS PRN PO PAIN / TEMP Last administered on 03/28/18at 14:17; Start 03/27/18 at 15:00 Multi-Ingredient Ointment (Analgesic [place]) 1 sofia PRN QID PRN TP MUSCLE PAIN; Start 03/27/18 at 15:00 Al Hydroxide/Mg Hydroxide (Mylanta Plus Xs) 15 ml PRN AFTMEALHC PRN PO DYSPEPSIA; Start 03/27/18 at 15:00 Magnesium Hydroxide (Milk Of Magnesia) 2,400 mg PRN QHS PRN PO CONSTIPATION Last administered on 03/31/18at 20:11; Start 03/27/18 at 15:00 Sertraline HCl (Zoloft) 100 mg DAILY PO Last administered on 03/28/18at 08:56; Start 03/28/18 at 09:00; Stop 03/28/18 at 16:45; Status DC Donepezil HCl (Aricept) 5 mg QHS PO Last administered on 04/08/18 20:07; Start 03/27/18 at 21:00 Risperidone (RisperDAL) 0.25 mg BID PO Last administered on 03/30/18 07:49; Start 03/27/18 at 21:00; Stop 03/30/18 at 11:22; Status DC Clopidogrel Bisulfate (Plavix) 75 mg DAILY PO Last administered on 04/08/18 09:44; Start 03/28/18 at 09:00 Hydrochlorothiazide (Hydrodiuril) 25 mg DAILY PO Last administered on 09:43; Start 03/28/18 at 09:00 Isosorbide Mononitrate (Imdur) 30 mg DAILY PO Last administered on 04/08/18 09:44; Start 03/28/18 at 09:00 Lisinopril (Prinivil) 20 mg BID PO Last administered on 04/08/18 20:08; Start 03/27/18 at 21:00 Nitroglycerin (Nitrostat) 0.4 mg PRN Q5MIN PRN SL CHEST PAIN; Start 03/27/18 at 16:00 Aspirin (Aspirin Enteric Coated) 81 mg DAILY PO Last administered on 09:43; Start 03/28/18 at 09:00 Calcium Carbonate/ Glycine (Oscal) 500 mg DAILY PO Last administered on 09:44; Start 03/28/18 at 09:00 Carvedilol (Coreg) 25 mg BIDWMEALS PO Last administered on 04/07/18 16:25; Start 03/27/18 at 17:00 Triamcinolone Acetonide (Kenalog) 1 sofia PRN BID PRN TP RASH; Start 03/27/18 at 16:15 Warfarin Sodium (Coumadin) 3.75 mg QMWF PO Last administered on 03/31/18 16: 27; Start 03/29/18 at 16:00; Stop 04/01/18 at 16:04; Status DC Warfarin Sodium (Coumadin) 7.5 mg QTUTHSASU PO Last administered on 03/30/18 16:14; Start 03/28/18 at 16:00; Stop 04/01/18 at 16:04; Status DC Warfarin Sodium (Coumadin Per Physician) 1 each PRN DAILY PRN MC SEE COMMENTS; Start 03/28/18 at 07:30; Status Cancel Vitamin D (Vitamin D3) 50,000 unit WEEKLY PO Last administered on 04/05/18at 08 :23; Start 03/29/18 at 09:00 Sertraline HCl (Zoloft) 75 mg DAILY PO Last administered on 04/08/18at 09:45; Start 03/29/18 at 09:00 Bupropion HCl (Wellbutrin Xl) 150 mg DAILY PO Last administered on 04/08/18 09:45; Start 03/29/18 at 09:00 Risperidone (RisperDAL) 0.25 mg QHS PO Last administered on 04/04/18 19:16; Start 03/30/18 at 21:00; Stop 04/05/18 at 18:55; Status DC Polyethylene Glycol (miraLAX) 17 gm DAILY PO Last administered on 04/08/18at 09 :44; Start 04/01/18 at 09:00 Warfarin Sodium (Coumadin Per Pharmacy) 1 each PRN DAILY PRN MC SEE COMMENTS Last administered on 04/07/18at 10:36; Start 04/01/18 at 16:00 Warfarin Sodium (Coumadin) 7.5 mg DAILY16 PO Last administered on 04/02/18at 16 :20; Start 04/01/18 at 16:30; Stop 04/03/18 at 09:48; Status DC Artificial Tears (Refresh Classic) 1 drop QID PRN OU DRY EYE Last administered on 04/06/18at 14:34; Start 04/02/18 at 17:45 Multi-Ingred Cream/Lotion/Oil/ Oint (Hydrocerin) 1 sofia QID PRN TP DRY SKIN / SCALING; Start 04/02/18 at 17:45 Warfarin Sodium (Coumadin) 5 mg 1X WARF ONCE PO Last administered on at 16:32; Start 04/03/18 at 16:00; Stop 04/03/18 at 16:01; Status DC Warfarin Sodium (Coumadin) 6 mg 1X WARF ONCE PO Last administered on at 16:10; Start 04/04/18 at 16:00; Stop 04/04/18 at 16:01; Status DC Warfarin Sodium (Coumadin) 6 mg 1X WARF ONCE PO Last administered on at 16:57; Start 04/05/18 at 16:00; Stop 04/05/18 at 16:01; Status DC Trazodone HCl (Desyrel) 50 mg PRN QHS PRN PO INSOMNIA; Start 04/05/18 at 19:00 Multivitamins/ Minerals (I-Yung) 1 tab DAILY PO Last administered on at 09:43; Start 04/06/18 at 09:00 Artificial Tears (Refresh Classic) 1 drop BID OU Last administered on at 20:08; Start 04/05/18 at 22:30 Warfarin Sodium (Coumadin) 6 mg 1X WARF ONCE PO Last administered on at 16:25; Start 04/06/18 at 16:00; Stop 04/06/18 at 16:01; Status DC Warfarin Sodium (Coumadin) 5 mg 1X WARF ONCE PO Last administered on at 16:20; Start 04/07/18 at 16:00; Stop 04/07/18 at 16:02; Status DC Warfarin Sodium (Coumadin) 5 mg 1X WARF ONCE PO Last administered on at 16:49; Start 04/08/18 at 16:00; Stop 04/08/18 at 16:01; Status DC Active Scripts Active Reported Warfarin Sodium 3 Mg Tablet 3.25 Mg PO MON, WED, FRI Warfarin Sodium 7.5 Mg Tablet 7.5 Mg PO TUE, , , SA Triamcinolone Acetonide 15 Gm Cream..g. 15 Gm TP PRN BID PRN Zoloft (Sertraline Hcl) 100 Mg Tablet 100 Mg PO DAILY Risperidone 0.5 Mg Tablet 0.25 Mg PO BID NITROGLYCERIN SubLingual (Nitroglycerin) 0.4 Mg Tab.subl 0.4 Mg SL PRN Q5MIN PRN Lisinopril 20 Mg Tablet 20 Mg PO BID Isosorbide Mononitrate Er (Isosorbide Mononitrate) 30 Mg Tab.er.24h 30 Mg PO DAILY Hydrochlorothiazide Tablet (Hydrochlorothiazide) 25 Mg Tablet 25 Mg PO DAILY Donepezil Hcl 5 Mg Tablet 5 Mg PO QHS Clopidogrel (Clopidogrel Bisulfate) 75 Mg Tablet 75 Mg PO DAILY Carvedilol 25 Mg Tablet 25 Mg PO BIDWMEALS Calcium Carbonate 600 Mg Tablet 600 Mg PO DAILY Aspirin Ec (Aspirin) 81 Mg Tablet. 81 Mg PO DAILY I have reviewed the current psychotropics carefully including drug interactions. Risk benefit ratio favors no change other than as noted in my dictated progress note. Diagnosis: Problems: (1) Confusion (2) Depression (3) Anxiety disorder (4) Impulse control disorder (5) Suicidal ideation (6) Alzheimer's dementia (7) Major neurocognitive disorder, due to vascular disease, with behavioral disturbance, mild SHERRY MATHIS MD Apr 08, 2018 22:01
[2018-04-08] MEDS ORDERED: POLYVINYL ALCOHOL/POVIDONE/PF OPHTH SOLUTION DROPERETTE. OU PRN (22:30)
[2018-04-09] MEDS: ACETAMINOPHEN 325 MG TABLET PO PRN (00:42)
[2018-04-09 06:35] VITALS: BP 152/64
[2018-04-09] MEDS: CARVEDILOL 12.5 MG TABLET PO SCH ×2 (08:00→16:46)
[2018-04-09] MEDS: MULTIVITAMIN I-VITE TABLET. PO SCH (09:11)
[2018-04-09] MEDS: hydroCHLOROthiazide 25 MG TABLET PO SCH (09:11)
[2018-04-09] MEDS: ASPIRIN ENTERIC COATED 81 MG TABLET.DR. PO SCH (09:11)
[2018-04-09] MEDS: POLYVINYL ALCOHOL/POVIDONE/PF OPHTH SOLUTION DROPERETTE. OU SCH ×4 (09:11→20:37)
[2018-04-09] MEDS: CLOPIDOGREL BISULFATE 75 MG TABLET PO SCH (09:12)
[2018-04-09] MEDS: POLYETHYLENE GLYCOL 3350 17 GM PACKET. PO SCH (09:12)
[2018-04-09] MEDS: ISOSORBIDE MONONITRATE ER 30 MG TAB.ER.24H PO SCH (09:12)
[2018-04-09] MEDS: CALCIUM CARBONATE 500 MG TABLET PO SCH (09:12)
[2018-04-09] MEDS: buPROPion XL 150 MG TAB.ER.24H PO SCH (09:13)
[2018-04-09] MEDS: LISINOPRIL 20 MG TABLET PO SCH ×2 (09:13→20:37)
[2018-04-09] MEDS: SERTRALINE 50 MG TABLET. PO SCH (09:13)
[2018-04-09] MEDS ORDERED: WARFARIN 5 MG TABLET. PO SCH (16:00)
[2018-04-09 16:10] VITALS: BP 132/58
[2018-04-09] MEDS: DONEPEZIL HCL 5 MG TABLET. PO SCH (20:36)
--- NOTE | 2018-04-09 23:12 | PDOC ---
Exam Note: Donal Note: Please also refer to the separate dictated note~for this date of service dictated separately.~Patient seen individually. Discussed the patient with Nursing staff reviewed the chart.~Reviewed interim history and current functioning. Reviewed vital signs,~Labs/ Radiology~and current medications noted below. Continue current treatment with the changes noted in the dictated addendum note Assessment: Vital Signs: Vital Signs Date Time Temp Pulse Resp B/P (MAP) Pulse Ox O2 Delivery O2 Flow Rate FiO2 04/09/18 20:37 77 132/58 04/09/18 16:10 98.0 19 97 04/09/18 06:35 Room Air I&O Intake and Output 04/09/18 07:01 Intake Total 1685 ml Balance 1685 ml Intake Oral 1685 ml # Bowel Movements 1 Labs: Laboratory Tests Test 04/09/18 06:28 Prothrombin Time 26.3 SEC (9.4-11.4) H Prothrombin Time INR 2.8 (0.9-1.1) H Current Medications: Meds: Current Medications Acetaminophen (Tylenol) 650 mg PRN Q6HRS PRN PO PAIN / TEMP Last administered on 04/09/18at 00:42; Start 03/27/18 at 15:00 Multi-Ingredient Ointment (Analgesic [place]) 1 sofia PRN QID PRN TP MUSCLE PAIN; Start 03/27/18 at 15:00 Al Hydroxide/Mg Hydroxide (Mylanta Plus Xs) 15 ml PRN AFTMEALHC PRN PO DYSPEPSIA; Start 03/27/18 at 15:00 Magnesium Hydroxide (Milk Of Magnesia) 2,400 mg PRN QHS PRN PO CONSTIPATION Last administered on 03/31/18at 20:11; Start 03/27/18 at 15:00 Sertraline HCl (Zoloft) 100 mg DAILY PO Last administered on 03/28/18at 08:56; Start 03/28/18 at 09:00; Stop 03/28/18 at 16:45; Status DC Donepezil HCl (Aricept) 5 mg QHS PO Last administered on 04/09/18at 20:36; Start 03/27/18 at 21:00 Risperidone (RisperDAL) 0.25 mg BID PO Last administered on 03/30/18at 07:49; Start 03/27/18 at 21:00; Stop 03/30/18 at 11:22; Status DC Clopidogrel Bisulfate (Plavix) 75 mg DAILY PO Last administered on 04/09/18 09:12; Start 03/28/18 at 09:00 Hydrochlorothiazide (Hydrodiuril) 25 mg DAILY PO Last administered on 09:11; Start 03/28/18 at 09:00 Isosorbide Mononitrate (Imdur) 30 mg DAILY PO Last administered on 04/09/18 09:12; Start 03/28/18 at 09:00 Lisinopril (Prinivil) 20 mg BID PO Last administered on 04/09/18 20:37; Start 03/27/18 at 21:00 Nitroglycerin (Nitrostat) 0.4 mg PRN Q5MIN PRN SL CHEST PAIN; Start 03/27/18 at 16:00 Aspirin (Aspirin Enteric Coated) 81 mg DAILY PO Last administered on 09:11; Start 03/28/18 at 09:00 Calcium Carbonate/ Glycine (Oscal) 500 mg DAILY PO Last administered on 09:12; Start 03/28/18 at 09:00 Carvedilol (Coreg) 25 mg BIDWMEALS PO Last administered on 04/09/18 16:46; Start 03/27/18 at 17:00 Triamcinolone Acetonide (Kenalog) 1 sofia PRN BID PRN TP RASH; Start 03/27/18 at 16:15 Warfarin Sodium (Coumadin) 3.75 mg QMWF PO Last administered on 03/31/18at 16: 27; Start 03/29/18 at 16:00; Stop 04/01/18 at 16:04; Status DC Warfarin Sodium (Coumadin) 7.5 mg QTUTHSASU PO Last administered on 03/30/18at 16:14; Start 03/28/18 at 16:00; Stop 04/01/18 at 16:04; Status DC Warfarin Sodium (Coumadin Per Physician) 1 each PRN DAILY PRN MC SEE COMMENTS; Start 03/28/18 at 07:30; Status Cancel Vitamin D (Vitamin D3) 50,000 unit WEEKLY PO Last administered on 04/05/18at 08 :23; Start 03/29/18 at 09:00 Sertraline HCl (Zoloft) 75 mg DAILY PO Last administered on 04/09/18 09:13; Start 03/29/18 at 09:00 Bupropion HCl (Wellbutrin Xl) 150 mg DAILY PO Last administered on 04/09/18 09:13; Start 03/29/18 at 09:00 Risperidone (RisperDAL) 0.25 mg QHS PO Last administered on 04/04/18at 19:16; Start 03/30/18 at 21:00; Stop 04/05/18 at 18:55; Status DC Polyethylene Glycol (miraLAX) 17 gm DAILY PO Last administered on 04/09/18 09 :12; Start 04/01/18 at 09:00 Warfarin Sodium (Coumadin Per Pharmacy) 1 each PRN DAILY PRN MC SEE COMMENTS Last administered on 04/09/18at 11:25; Start 04/01/18 at 16:00 Warfarin Sodium (Coumadin) 7.5 mg DAILY16 PO Last administered on 04/02/18at 16 :20; Start 04/01/18 at 16:30; Stop 04/03/18 at 09:48; Status DC Artificial Tears (Refresh Classic) 1 drop QID PRN OU DRY EYE Last administered on 04/06/18at 14:34; Start 04/02/18 at 17:45; Stop 04/08/18 at 22:20; Status DC Multi-Ingred Cream/Lotion/Oil/ Oint (Hydrocerin) 1 sofia QID PRN TP DRY SKIN / SCALING; Start 04/02/18 at 17:45 Warfarin Sodium (Coumadin) 5 mg 1X WARF ONCE PO Last administered on at 16:32; Start 04/03/18 at 16:00; Stop 04/03/18 at 16:01; Status DC Warfarin Sodium (Coumadin) 6 mg 1X WARF ONCE PO Last administered on at 16:10; Start 04/04/18 at 16:00; Stop 04/04/18 at 16:01; Status DC Warfarin Sodium (Coumadin) 6 mg 1X WARF ONCE PO Last administered on at 16:57; Start 04/05/18 at 16:00; Stop 04/05/18 at 16:01; Status DC Trazodone HCl (Desyrel) 50 mg PRN QHS PRN PO INSOMNIA; Start 04/05/18 at 19:00 Multivitamins/ Minerals (I-Yung) 1 tab DAILY PO Last administered on at 09:11; Start 04/06/18 at 09:00 Artificial Tears (Refresh Classic) 1 drop BID OU Last administered on at 20:08; Start 04/05/18 at 22:30; Stop 04/08/18 at 22:20; Status DC Warfarin Sodium (Coumadin) 6 mg 1X WARF ONCE PO Last administered on at 16:25; Start 04/06/18 at 16:00; Stop 04/06/18 at 16:01; Status DC Warfarin Sodium (Coumadin) 5 mg 1X WARF ONCE PO Last administered on at 16:20; Start 04/07/18 at 16:00; Stop 04/07/18 at 16:02; Status DC Warfarin Sodium (Coumadin) 5 mg 1X WARF ONCE PO Last administered on at 16:49; Start 04/08/18 at 16:00; Stop 04/08/18 at 16:01; Status DC Artificial Tears (Refresh Classic) 1 drop PRN Q2HR PRN OU DRY EYE; Start 04/08 at 22:30 Artificial Tears (Refresh Classic) 1 drop QID OU Last administered on at 20:37; Start 04/09/18 at 09:00 Warfarin Sodium (Coumadin) 5 mg DAILY16 PO Last administered on 04/09/18at 16: 28; Start 04/09/18 at 16:00 Active Scripts Active Reported Warfarin Sodium 3 Mg Tablet 3.25 Mg PO MON, TUE, TUE Warfarin Sodium 7.5 Mg Tablet 7.5 Mg PO TUE, , , Triamcinolone Acetonide 15 Gm Cream..g. 15 Gm TP PRN BID PRN Zoloft (Sertraline Hcl) 100 Mg Tablet 100 Mg PO DAILY Risperidone 0.5 Mg Tablet 0.25 Mg PO BID NITROGLYCERIN SubLingual (Nitroglycerin) 0.4 Mg Tab.subl 0.4 Mg SL PRN Q5MIN PRN Lisinopril 20 Mg Tablet 20 Mg PO BID Isosorbide Mononitrate Er (Isosorbide Mononitrate) 30 Mg Tab.er.24h 30 Mg PO DAILY Hydrochlorothiazide Tablet (Hydrochlorothiazide) 25 Mg Tablet 25 Mg PO DAILY Donepezil Hcl 5 Mg Tablet 5 Mg PO QHS Clopidogrel (Clopidogrel Bisulfate) 75 Mg Tablet 75 Mg PO DAILY Carvedilol 25 Mg Tablet 25 Mg PO BIDWMEALS Calcium Carbonate 600 Mg Tablet 600 Mg PO DAILY Aspirin Ec (Aspirin) 81 Mg Tablet. 81 Mg PO DAILY I have reviewed the current psychotropics carefully including drug interactions. Risk benefit ratio favors no change other than as noted in my dictated progress note. Diagnosis: Problems: (1) Confusion (2) Depression (3) Anxiety disorder (4) Impulse control disorder (5) Suicidal ideation (6) Alzheimer's dementia (7) Major neurocognitive disorder, due to vascular disease, with behavioral disturbance, mild SHERRY MATHIS MD Apr 09, 2018 23:12
[2018-04-10 05:43] VITALS: BP 149/70
[2018-04-10] MEDS: ASPIRIN ENTERIC COATED 81 MG TABLET.DR. PO SCH (09:05)
[2018-04-10] MEDS: MULTIVITAMIN I-VITE TABLET. PO SCH (09:05)
[2018-04-10] MEDS: POLYVINYL ALCOHOL/POVIDONE/PF OPHTH SOLUTION DROPERETTE. OU SCH ×4 (09:05→19:25)
[2018-04-10] MEDS: hydroCHLOROthiazide 25 MG TABLET PO SCH (09:05)
[2018-04-10] MEDS: CARVEDILOL 12.5 MG TABLET PO SCH ×2 (09:05→17:23)
[2018-04-10] MEDS: CLOPIDOGREL BISULFATE 75 MG TABLET PO SCH (09:06)
[2018-04-10] MEDS: POLYETHYLENE GLYCOL 3350 17 GM PACKET. PO SCH (09:06)
[2018-04-10] MEDS: ISOSORBIDE MONONITRATE ER 30 MG TAB.ER.24H PO SCH (09:06)
[2018-04-10] MEDS: CALCIUM CARBONATE 500 MG TABLET PO SCH (09:06)
[2018-04-10] MEDS: SERTRALINE 50 MG TABLET. PO SCH (09:07)
[2018-04-10] MEDS: buPROPion XL 150 MG TAB.ER.24H PO SCH (09:07)
[2018-04-10] MEDS: LISINOPRIL 20 MG TABLET PO SCH ×2 (09:07→19:26)
[2018-04-10] MEDS ORDERED: WARFARIN 6 MG TABLET. PO ONE (16:00)
[2018-04-10 16:49] VITALS: BP 166/67
[2018-04-10] MEDS: DONEPEZIL HCL 5 MG TABLET. PO SCH (19:25)
--- NOTE | 2018-04-10 20:15 | PN ---
DATE: 04/07/2018 PSYCHIATRIC PROGRESS NOTE This late entry 04/07/2018 covers elements not covered in my initial note. SUBJECTIVE: I met with the patient in the evening and staffed at treatment team meeting earlier in the day. The patient slept 7-1/2 hours previous night and I met with her at length in her room. She is compliant with medications, more interactive. Appetite 90%. Social service staff discussed at some length placement options. She gets $1200 a month and this may not be adequate for an assisted living and plan is for her to return home with family, keeping close contact with her. REVIEW OF SYSTEMS: Ambulation impaired with walker. No CV, , pulmonary, eye, ENT system symptoms on review. MENTAL STATUS EXAM: Oriented to herself and situation. Speech is coherent, abstraction fair, computation impaired, language function intact, attention span short. Mood and affect withdrawn, but less depressed. LABORATORY DATA: Reviewed. 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 PLAN: No change from initial note. SHERRY MATHIS MD DR: KIRSTEN/comfort JOB#: [id number] / [id number]
--- NOTE | 2018-04-10 22:45 | PDOC ---
Exam Note: Donal Note: Please also refer to the separate dictated note~for this date of service dictated separately.~Patient seen individually. Discussed the patient with Nursing staff reviewed the chart.~Reviewed interim history and current functioning. Reviewed vital signs,~Labs/ Radiology~and current medications noted below. Continue current treatment with the changes noted in the dictated addendum note Assessment: Vital Signs: Vital Signs Date Time Temp Pulse Resp B/P (MAP) Pulse Ox O2 Delivery O2 Flow Rate FiO2 04/10/18 19:26 61 166/67 04/10/18 16:49 97.3 18 95 04/09/18 06:35 Room Air I&O Intake and Output 04/10/18 07:01 Intake Total 720 ml Balance 720 ml Intake Oral 720 ml Labs: Laboratory Tests Test 04/10/18 07:35 Prothrombin Time 21.8 SEC (9.4-11.4) H Prothrombin Time INR 2.3 (0.9-1.1) H Current Medications: Meds: Current Medications Acetaminophen (Tylenol) 650 mg PRN Q6HRS PRN PO PAIN / TEMP Last administered on 04/09/18at 00:42; Start 03/27/18 at 15:00 Multi-Ingredient Ointment (Analgesic [place]) 1 sofia PRN QID PRN TP MUSCLE PAIN; Start 03/27/18 at 15:00 Al Hydroxide/Mg Hydroxide (Mylanta Plus Xs) 15 ml PRN AFTMEALHC PRN PO DYSPEPSIA; Start 03/27/18 at 15:00 Magnesium Hydroxide (Milk Of Magnesia) 2,400 mg PRN QHS PRN PO CONSTIPATION Last administered on 03/31/18at 20:11; Start 03/27/18 at 15:00 Sertraline HCl (Zoloft) 100 mg DAILY PO Last administered on 03/28/18at 08:56; Start 03/28/18 at 09:00; Stop 03/28/18 at 16:45; Status DC Donepezil HCl (Aricept) 5 mg QHS PO Last administered on 04/10/18at 19:25; Start 03/27/18 at 21:00 Risperidone (RisperDAL) 0.25 mg BID PO Last administered on 03/30/18at 07:49; Start 03/27/18 at 21:00; Stop 03/30/18 at 11:22; Status DC Clopidogrel Bisulfate (Plavix) 75 mg DAILY PO Last administered on 04/10/18 09:06; Start 03/28/18 at 09:00 Hydrochlorothiazide (Hydrodiuril) 25 mg DAILY PO Last administered on 09:05; Start 03/28/18 at 09:00 Isosorbide Mononitrate (Imdur) 30 mg DAILY PO Last administered on 04/10/18 09:06; Start 03/28/18 at 09:00 Lisinopril (Prinivil) 20 mg BID PO Last administered on 04/10/18 19:26; Start 03/27/18 at 21:00 Nitroglycerin (Nitrostat) 0.4 mg PRN Q5MIN PRN SL CHEST PAIN; Start 03/27/18 at 16:00 Aspirin (Aspirin Enteric Coated) 81 mg DAILY PO Last administered on 09:05; Start 03/28/18 at 09:00 Calcium Carbonate/ Glycine (Oscal) 500 mg DAILY PO Last administered on 09:06; Start 03/28/18 at 09:00 Carvedilol (Coreg) 25 mg BIDWMEALS PO Last administered on 04/10/18 17:23; Start 03/27/18 at 17:00 Triamcinolone Acetonide (Kenalog) 1 sofia PRN BID PRN TP RASH; Start 03/27/18 at 16:15 Warfarin Sodium (Coumadin) 3.75 mg QMWF PO Last administered on 03/31/18at 16: 27; Start 03/29/18 at 16:00; Stop 04/01/18 at 16:04; Status DC Warfarin Sodium (Coumadin) 7.5 mg QTUTHSASU PO Last administered on 03/30/18at 16:14; Start 03/28/18 at 16:00; Stop 04/01/18 at 16:04; Status DC Warfarin Sodium (Coumadin Per Physician) 1 each PRN DAILY PRN MC SEE COMMENTS; Start 03/28/18 at 07:30; Status Cancel Vitamin D (Vitamin D3) 50,000 unit WEEKLY PO Last administered on 04/05/18at 08 :23; Start 03/29/18 at 09:00 Sertraline HCl (Zoloft) 75 mg DAILY PO Last administered on 04/10/18 09:07; Start 03/29/18 at 09:00 Bupropion HCl (Wellbutrin Xl) 150 mg DAILY PO Last administered on 04/10/18at 09:07; Start 03/29/18 at 09:00 Risperidone (RisperDAL) 0.25 mg QHS PO Last administered on 04/04/18at 19:16; Start 03/30/18 at 21:00; Stop 04/05/18 at 18:55; Status DC Polyethylene Glycol (miraLAX) 17 gm DAILY PO Last administered on 04/10/18 09 :06; Start 04/01/18 at 09:00 Warfarin Sodium (Coumadin Per Pharmacy) 1 each PRN DAILY PRN MC SEE COMMENTS Last administered on 04/10/18at 10:28; Start 04/01/18 at 16:00 Warfarin Sodium (Coumadin) 7.5 mg DAILY16 PO Last administered on 04/02/18at 16 :20; Start 04/01/18 at 16:30; Stop 04/03/18 at 09:48; Status DC Artificial Tears (Refresh Classic) 1 drop QID PRN OU DRY EYE Last administered on 04/06/18at 14:34; Start 04/02/18 at 17:45; Stop 04/08/18 at 22:20; Status DC Multi-Ingred Cream/Lotion/Oil/ Oint (Hydrocerin) 1 sofia QID PRN TP DRY SKIN / SCALING; Start 04/02/18 at 17:45 Warfarin Sodium (Coumadin) 5 mg 1X WARF ONCE PO Last administered on at 16:32; Start 04/03/18 at 16:00; Stop 04/03/18 at 16:01; Status DC Warfarin Sodium (Coumadin) 6 mg 1X WARF ONCE PO Last administered on at 16:10; Start 04/04/18 at 16:00; Stop 04/04/18 at 16:01; Status DC Warfarin Sodium (Coumadin) 6 mg 1X WARF ONCE PO Last administered on at 16:57; Start 04/05/18 at 16:00; Stop 04/05/18 at 16:01; Status DC Trazodone HCl (Desyrel) 50 mg PRN QHS PRN PO INSOMNIA; Start 04/05/18 at 19:00 Multivitamins/ Minerals (I-Yung) 1 tab DAILY PO Last administered on at 09:05; Start 04/06/18 at 09:00 Artificial Tears (Refresh Classic) 1 drop BID OU Last administered on at 20:08; Start 04/05/18 at 22:30; Stop 04/08/18 at 22:20; Status DC Warfarin Sodium (Coumadin) 6 mg 1X WARF ONCE PO Last administered on at 16:25; Start 04/06/18 at 16:00; Stop 04/06/18 at 16:01; Status DC Warfarin Sodium (Coumadin) 5 mg 1X WARF ONCE PO Last administered on at 16:20; Start 04/07/18 at 16:00; Stop 04/07/18 at 16:02; Status DC Warfarin Sodium (Coumadin) 5 mg 1X WARF ONCE PO Last administered on at 16:49; Start 04/08/18 at 16:00; Stop 04/08/18 at 16:01; Status DC Artificial Tears (Refresh Classic) 1 drop PRN Q2HR PRN OU DRY EYE; Start 04/08 at 22:30 Artificial Tears (Refresh Classic) 1 drop QID OU Last administered on at 19:25; Start 04/09/18 at 09:00 Warfarin Sodium (Coumadin) 5 mg DAILY16 PO Last administered on 04/09/18at 16: 28; Start 04/09/18 at 16:00; Stop 04/10/18 at 10:24; Status DC Warfarin Sodium (Coumadin) 6 mg 1X WARF ONCE PO Last administered on at 17:23; Start 04/10/18 at 16:00; Stop 04/10/18 at 16:01; Status DC Active Scripts Active Reported Warfarin Sodium 3 Mg Tablet 3.25 Mg PO MON, WED, FRI Warfarin Sodium 7.5 Mg Tablet 7.5 Mg PO TUE, , , Triamcinolone Acetonide 15 Gm Cream..g. 15 Gm TP PRN BID PRN Zoloft (Sertraline Hcl) 100 Mg Tablet 100 Mg PO DAILY Risperidone 0.5 Mg Tablet 0.25 Mg PO BID NITROGLYCERIN SubLingual (Nitroglycerin) 0.4 Mg Tab.subl 0.4 Mg SL PRN Q5MIN PRN Lisinopril 20 Mg Tablet 20 Mg PO BID Isosorbide Mononitrate Er (Isosorbide Mononitrate) 30 Mg Tab.er.24h 30 Mg PO DAILY Hydrochlorothiazide Tablet (Hydrochlorothiazide) 25 Mg Tablet 25 Mg PO DAILY Donepezil Hcl 5 Mg Tablet 5 Mg PO QHS Clopidogrel (Clopidogrel Bisulfate) 75 Mg Tablet 75 Mg PO DAILY Carvedilol 25 Mg Tablet 25 Mg PO BIDWMEALS Calcium Carbonate 600 Mg Tablet 600 Mg PO DAILY Aspirin Ec (Aspirin) 81 Mg Tablet.dr 81 Mg PO DAILY I have reviewed the current psychotropics carefully including drug interactions. Risk benefit ratio favors no change other than as noted in my dictated progress note. Diagnosis: Problems: (1) Confusion (2) Depression (3) Anxiety disorder (4) Impulse control disorder (5) Suicidal ideation (6) Alzheimer's dementia (7) Major neurocognitive disorder, due to vascular disease, with behavioral disturbance, mild SHERRY MATHIS MD Apr 10, 2018 22:45
[2018-04-10] MEDS ORDERED: ACET325T9 PO (23:48)
[2018-04-10] MEDS ORDERED: CALC500T PO (23:49)
[2018-04-10] MEDS ORDERED: CHOL500021 PO (23:50)
[2018-04-10] MEDS ORDERED: MAGN2400 PO (23:53)
[2018-04-10] MEDS ORDERED: MAG30ORA2 PO (23:53)
[2018-04-10] MEDS ORDERED: METH29OI TP (23:54)
[2018-04-10] MEDS ORDERED: MINE473L5 TP (23:55)
[2018-04-10] MEDS ORDERED: VIT1TABL8 PO (23:56)
[2018-04-10] MEDS ORDERED: POLY17PO5 PO (23:57)
[2018-04-10] MEDS ORDERED: POLY1DRO3 OP ×2 (23:58→23:59)
[2018-04-10] MEDS ORDERED: CARB15DR3 EACHEYE (23:58)
[2018-04-11] MEDS ORDERED: WARF6TAB47 PO (00:05)
[2018-04-11] MEDS ORDERED: BUPR150T15 PO (00:07)
[2018-04-11] MEDS ORDERED: TRAZ-85 PO (00:10)
--- NOTE | 2018-04-11 02:20 | PN ---
DATE: 04/08/2018 This is a late entry for 04/08/2018 and covers elements not covered in my initial note. SUBJECTIVE: The patient slept 8 hours previous night. She has been pleasant, cooperative, met with her at length in her room. The patient is wanting to go home to her luis miguel and we processed this. I have discussed with social service staff and they are arranging transition back home with outpatient treatment. REVIEW OF SYSTEMS: Ambulation impaired with walker. No CV, , pulmonary, eye symptoms on review. Reliability fair. MENTAL STATUS EXAM: Oriented to herself and situation. Speech is coherent, abstraction fair, computation impaired, language function intact. Mood and affect is improved. No suicidal ideation. Short-term memory, has mild deficits. LABORATORY DATA: Reviewed. IMPRESSION: Unchanged from initial note. PLAN: No change from initial note. MAN Елена MATHIS MD DR: KIRSTEN/comfort JOB#: [id number] / [id number]
--- NOTE | 2018-04-11 02:21 | PN ---
DATE: 04/09/2018 PSYCHIATRIC PROGRESS NOTE This late entry of 04/09/2018 covers elements not covered in my initial note. SUBJECTIVE: I met with the patient in the evening. The patient slept 9 hours previous night. I met with her in her room. REVIEW OF SYSTEMS: Ambulation impaired with walker. No CV, , pulmonary, eye system symptoms on review. MENTAL STATUS EXAM: Oriented to herself and situation. Speech is coherent, abstraction fair, computation impaired, language function intact. Mood and affect is improved. No suicidal ideation. LABORATORY DATA: Reviewed. IMPRESSION: Unchanged from initial note. PLAN: No change from initial note. MAN Елена MATHIS MD DR: KIRSTEN/comfort JOB#: [id number] / [id number]
--- NOTE | 2018-04-11 02:24 | PN ---
DATE: 04/09/2018 This is a late entry of 04/09/2018 covers elements not covered in my initial note. SUBJECTIVE: I met with the patient in the evening in her room. She remains somewhat withdrawn, slept 9 hours previous night, still fixated on discharge plans, addressed at length with her. Otherwise, mood has been stable. No suicidal ideation. REVIEW OF SYSTEMS: Ambulation impaired with walker. No CV, , pulmonary, eye, ENT system symptoms on review. Reliability fair. MENTAL STATUS EXAM: Oriented to herself and situation. Speech is coherent, abstraction fair, computation impaired, language function intact, attention span short. Mood and affect remains appropriate. No suicidal ideation. LABORATORY DATA: Reviewed. IMPRESSION: Unchanged from initial note. PLAN: No change from initial note. MAN Елена MATHIS MD DR: KIRSTEN/comfort JOB#: [id number] / [id number]
[2018-04-11 06:01] VITALS: BP 163/83
[2018-04-11] MEDS: CALCIUM CARBONATE 500 MG TABLET PO SCH (08:44)
[2018-04-11] MEDS: LISINOPRIL 20 MG TABLET PO SCH (08:44)
[2018-04-11] MEDS: MULTIVITAMIN I-VITE TABLET. PO SCH (08:44)
[2018-04-11 08:45] VITALS: BP 163/83
[2018-04-11] MEDS: ISOSORBIDE MONONITRATE ER 30 MG TAB.ER.24H PO SCH (08:45)
[2018-04-11] MEDS: buPROPion XL 150 MG TAB.ER.24H PO SCH (08:45)
[2018-04-11] MEDS: ASPIRIN ENTERIC COATED 81 MG TABLET.DR. PO SCH (08:45)
[2018-04-11] MEDS: CLOPIDOGREL BISULFATE 75 MG TABLET PO SCH (08:45)
[2018-04-11] MEDS: CARVEDILOL 12.5 MG TABLET PO SCH (08:45)
[2018-04-11] MEDS: POLYVINYL ALCOHOL/POVIDONE/PF OPHTH SOLUTION DROPERETTE. OU SCH ×2 (08:46→12:55)
[2018-04-11] MEDS: POLYETHYLENE GLYCOL 3350 17 GM PACKET. PO SCH (08:46)
[2018-04-11] MEDS: SERTRALINE 50 MG TABLET. PO SCH (08:46)
[2018-04-11] MEDS: hydroCHLOROthiazide 25 MG TABLET PO SCH (08:46)
--- NOTE | 2018-04-11 20:17 | PDOC ---
Exam Note: Donal Note: Please also refer to the separate dictated note~for this date of service dictated separately.~Patient seen individually. Discussed the patient with Nursing staff reviewed the chart.~Reviewed interim history and current functioning. Reviewed vital signs,~Labs/ Radiology~and current medications noted below. Continue current treatment with the changes noted in the dictated addendum note Assessment: Vital Signs: Vital Signs Date Time Temp Pulse Resp B/P (MAP) Pulse Ox O2 Delivery O2 Flow Rate FiO2 04/11/18 08:45 68 163/83 04/11/18 06:01 97.0 20 97 04/09/18 06:35 Room Air I&O Intake and Output 04/11/18 07:01 Intake Total 960 ml Balance 960 ml Intake Oral 960 ml Labs: Laboratory Tests Test 04/11/18 09:14 Prothrombin Time 18.9 SEC (9.4-11.4) H Prothrombin Time INR 2.0 (0.9-1.1) H Current Medications: Meds: Current Medications Acetaminophen (Tylenol) 650 mg PRN Q6HRS PRN PO PAIN / TEMP Last administered on 04/09/18at 00:42; Start 03/27/18 at 15:00; Stop 04/11/18 at 16:33; Status DC Multi-Ingredient Ointment (Analgesic [place]) 1 lucille PRN QID PRN TP MUSCLE PAIN; Start 03/27/18 at 15:00; Stop 04/11/18 at 16:33; Status DC Al Hydroxide/Mg Hydroxide (Mylanta Plus Xs) 15 ml PRN AFTMEALHC PRN PO DYSPEPSIA; Start 03/27/18 at 15:00; Stop 04/11/18 at 16:33; Status DC Magnesium Hydroxide (Milk Of Magnesia) 2,400 mg PRN QHS PRN PO CONSTIPATION Last administered on 03/31/18at 20:11; Start 03/27/18 at 15:00; Stop 04/11/18 at 16:33; Status DC Sertraline HCl (Zoloft) 100 mg DAILY PO Last administered on 03/28/18at 08:56; Start 03/28/18 at 09:00; Stop 03/28/18 at 16:45; Status DC Donepezil HCl (Aricept) 5 mg QHS PO Last administered on 04/10/18at 19:25; Start 03/27/18 at 21:00; Stop 04/11/18 at 16:33; Status DC Risperidone (RisperDAL) 0.25 mg BID PO Last administered on 03/30/18at 07:49; Start 03/27/18 at 21:00; Stop 03/30/18 at 11:22; Status DC Clopidogrel Bisulfate (Plavix) 75 mg DAILY PO Last administered on 04/11/18 08: 45; Start 03/28/18 at 09:00; Stop 04/11/18 at 16:33; Status DC Hydrochlorothiazide (Hydrodiuril) 25 mg DAILY PO Last administered on 04/11/18 08:46; Start 03/28/18 at 09:00; Stop 04/11/18 at 16:33; Status DC Isosorbide Mononitrate (Imdur) 30 mg DAILY PO Last administered on 04/11/18 08: 45; Start 03/28/18 at 09:00; Stop 04/11/18 at 16:33; Status DC Lisinopril (Prinivil) 20 mg BID PO Last administered on 04/11/18 08:44; Start 03/27/18 at 21:00; Stop 04/11/18 at 16:33; Status DC Nitroglycerin (Nitrostat) 0.4 mg PRN Q5MIN PRN SL CHEST PAIN; Start 03/27/18 at 16:00; Stop 04/11/18 at 16:33; Status DC Aspirin (Aspirin Enteric Coated) 81 mg DAILY PO Last administered on 04/11/18 08:45; Start 03/28/18 at 09:00; Stop 04/11/18 at 16:33; Status DC Calcium Carbonate/ Glycine (Oscal) 500 mg DAILY PO Last administered on 08:44; Start 03/28/18 at 09:00; Stop 04/11/18 at 16:33; Status DC Carvedilol (Coreg) 25 mg BIDWMEALS PO Last administered on 04/11/18 08:45; Start 03/27/18 at 17:00; Stop 04/11/18 at 16:33; Status DC Triamcinolone Acetonide (Kenalog) 1 lucille PRN BID PRN TP RASH; Start 03/27/18 at 16:15; Stop 04/11/18 at 16:33; Status DC Warfarin Sodium (Coumadin) 3.75 mg QMWF PO Last administered on 03/31/18at 16: 27; Start 03/29/18 at 16:00; Stop 04/01/18 at 16:04; Status DC Warfarin Sodium (Coumadin) 7.5 mg QTUTHSASU PO Last administered on 03/30/18at 16:14; Start 03/28/18 at 16:00; Stop 04/01/18 at 16:04; Status DC Warfarin Sodium (Coumadin Per Physician) 1 each PRN DAILY PRN MC SEE COMMENTS; Start 03/28/18 at 07:30; Status Cancel Vitamin D (Vitamin D3) 50,000 unit WEEKLY PO Last administered on 04/05/18at 08 :23; Start 03/29/18 at 09:00; Stop 04/11/18 at 16:33; Status DC Sertraline HCl (Zoloft) 75 mg DAILY PO Last administered on 04/11/18at 08:46; Start 03/29/18 at 09:00; Stop 04/11/18 at 16:33; Status DC Bupropion HCl (Wellbutrin Xl) 150 mg DAILY PO Last administered on 04/11/18at 08: 45; Start 03/29/18 at 09:00; Stop 04/11/18 at 16:33; Status DC Risperidone (RisperDAL) 0.25 mg QHS PO Last administered on 04/04/18at 19:16; Start 03/30/18 at 21:00; Stop 04/05/18 at 18:55; Status DC Polyethylene Glycol (miraLAX) 17 gm DAILY PO Last administered on 04/11/18at 08: 46; Start 04/01/18 at 09:00; Stop 04/11/18 at 16:33; Status DC Warfarin Sodium (Coumadin Per Pharmacy) 1 each PRN DAILY PRN MC SEE COMMENTS Last administered on 04/10/18at 10:28; Start 04/01/18 at 16:00; Stop 04/11/18 at 16:33; Status DC Warfarin Sodium (Coumadin) 7.5 mg DAILY16 PO Last administered on 04/02/18at 16 :20; Start 04/01/18 at 16:30; Stop 04/03/18 at 09:48; Status DC Artificial Tears (Refresh Classic) 1 drop QID PRN OU DRY EYE Last administered on 04/06/18at 14:34; Start 04/02/18 at 17:45; Stop 04/08/18 at 22:20; Status DC Multi-Ingred Cream/Lotion/Oil/ Oint (Hydrocerin) 1 lucille QID PRN TP DRY SKIN / SCALING; Start 04/02/18 at 17:45; Stop 04/11/18 at 16:33; Status DC Warfarin Sodium (Coumadin) 5 mg 1X WARF ONCE PO Last administered on at 16:32; Start 04/03/18 at 16:00; Stop 04/03/18 at 16:01; Status DC Warfarin Sodium (Coumadin) 6 mg 1X WARF ONCE PO Last administered on at 16:10; Start 04/04/18 at 16:00; Stop 04/04/18 at 16:01; Status DC Warfarin Sodium (Coumadin) 6 mg 1X WARF ONCE PO Last administered on at 16:57; Start 04/05/18 at 16:00; Stop 04/05/18 at 16:01; Status DC Trazodone HCl (Desyrel) 50 mg PRN QHS PRN PO INSOMNIA; Start 04/05/18 at 19:00 ; Stop 04/11/18 at 16:33; Status DC Multivitamins/ Minerals (I-Yung) 1 tab DAILY PO Last administered on 04/11/18at 08:44; Start 04/06/18 at 09:00; Stop 04/11/18 at 16:33; Status DC Artificial Tears (Refresh Classic) 1 drop BID OU Last administered on at 20:08; Start 04/05/18 at 22:30; Stop 04/08/18 at 22:20; Status DC Warfarin Sodium (Coumadin) 6 mg 1X WARF ONCE PO Last administered on at 16:25; Start 04/06/18 at 16:00; Stop 04/06/18 at 16:01; Status DC Warfarin Sodium (Coumadin) 5 mg 1X WARF ONCE PO Last administered on at 16:20; Start 04/07/18 at 16:00; Stop 04/07/18 at 16:02; Status DC Warfarin Sodium (Coumadin) 5 mg 1X WARF ONCE PO Last administered on at 16:49; Start 04/08/18 at 16:00; Stop 04/08/18 at 16:01; Status DC Artificial Tears (Refresh Classic) 1 drop PRN Q2HR PRN OU DRY EYE; Start 04/08 at 22:30; Stop 04/11/18 at 16:33; Status DC Artificial Tears (Refresh Classic) 1 drop QID OU Last administered on 04/11/18at 12:55; Start 04/09/18 at 09:00; Stop 04/11/18 at 16:33; Status DC Warfarin Sodium (Coumadin) 5 mg DAILY16 PO Last administered on 04/09/18at 16: 28; Start 04/09/18 at 16:00; Stop 04/10/18 at 10:24; Status DC Warfarin Sodium (Coumadin) 6 mg 1X WARF ONCE PO Last administered on at 17:23; Start 04/10/18 at 16:00; Stop 04/10/18 at 16:01; Status DC Active Scripts Active Reported Trazodone Hcl 50 Mg Tablet 50 Mg PO PRN QHS PRN Wellbutrin Xl (Bupropion Hcl) 150 Mg Tab.er.24h 150 Mg PO DAILY Warfarin Sodium 6 Mg Tablet 6 Mg PO DAILY monitor INR Refresh Classic Eye Drops (Polyvinyl Alcohol/Povidone/Pf) 1 Each Droperette 1 Each OP PRN Q2HR PRN Refresh Classic Eye Drops (Polyvinyl Alcohol/Povidone/Pf) 1 Each Droperette 1 Each OP QID Miralax (Polyethylene Glycol 3350) 17 Gm Powd.pack 17 Gm PO DAILY I-Yung Tablet (Vit A,C & E/Lutein/Minerals) 1 Each Tablet 1 Each PO DAILY Hydrocerin Lotion (Mineral Oil/I-Prop Myr/Water) 472 Ml Lotion 1 Lucille TP PRN QID PRN Analgesic [place] (Methyl Salicylate/Menthol) 28 Gm Oint...g. 1 Gm TP PRN QID PRN Milk Of Magnesia (Magnesium Hydroxide) 2,400 Mg/10 Ml Oral.susp 2,400 Mg PO PRN QHS PRN Mag-Al Plus Xs Suspension (Mag Hydrox/Al Hydrox/Simeth) 30 Ml Oral.susp 15 Ml PO PRN AFTMEALHC PRN D3-50 (Cholecalciferol (Vitamin D3)) 50,000 Unit Capsule 50,000 Unit PO WEEKLY Calcium Carbonate 500 Mg Tablet 500 Mg PO DAILY Tylenol (Acetaminophen) 325 Mg Tablet 650 Mg PO PRN Q6HRS PRN Triamcinolone Acetonide 15 Gm Cream..g. 15 Gm TP PRN BID PRN Zoloft (Sertraline Hcl) 100 Mg Tablet 75 Mg PO DAILY NITROGLYCERIN SubLingual (Nitroglycerin) 0.4 Mg Tab.subl 0.4 Mg SL PRN Q5MIN PRN may repeat x2 if chest pain persists Lisinopril 20 Mg Tablet 20 Mg PO BID Isosorbide Mononitrate Er (Isosorbide Mononitrate) 30 Mg Tab.er.24h 30 Mg PO DAILY Hydrochlorothiazide Tablet (Hydrochlorothiazide) 25 Mg Tablet 25 Mg PO DAILY Donepezil Hcl 5 Mg Tablet 5 Mg PO QHS Clopidogrel (Clopidogrel Bisulfate) 75 Mg Tablet 75 Mg PO DAILY Carvedilol 25 Mg Tablet 25 Mg PO BIDWMEALS Aspirin Ec (Aspirin) 81 Mg Tablet.dr 81 Mg PO DAILY I have reviewed the current psychotropics carefully including drug interactions. Risk benefit ratio favors no change other than as noted in my dictated progress note. Diagnosis: Problems: (1) Suicidal ideation (2) Impulse control disorder (3) Anxiety disorder (4) Depression (5) Major neurocognitive disorder, due to vascular disease, with behavioral disturbance, mild SHERRY MATHIS MD Apr 11, 2018 20:17
--- NOTE | 2018-04-11 21:12 | DS ---
DATE OF DISCHARGE: 04/11/2018 DISCHARGE SUMMARY/ PSYCHIATRIC PROGRESS NOTE This note covers elements, not covered in my initial note of 04/11/2018. REASON FOR ADMISSION: Please refer to the admission history for details. HISTORY OF PRESENT ILLNESS: Briefly, the patient is an 87-year-old female referred to us by her primary care physician. She was living at home and presented to the [facility] Emergency Room on account of worsening symptoms of depression and suicidal ideation. Reportedly, she made a statement to the family that if she had a gun, she would kill herself. This is what prompted referral to the ER and then on to us for inpatient psychiatric stabilization. SIGNIFICANT FINDINGS AND CLINICAL COURSE: Following admission, the patient was seen daily individually by myself from a psychiatric standpoint, medical followup with Dr. Marquez. Initially, she was quite depressed, withdrawn, anxious with some short-term memory deficits, but the confusion was better towards the end of her hospitalization. She had vague suicidal ideation at admission. Adjustments were made in her psychotropics and she seemed to respond to a combination of Aricept 5 mg at bedtime, Zoloft 75 mg a day, being augmented by Wellbutrin-XL 150 mg a day and trazodone 50 mg at bedtime p.r.n. for insomnia. Gradually mood appeared to improve. She denied suicidal ideation and family had made arrangements for her to return home with her cat and the family would be closely involved in her care. Outpatient psychiatric followup had been arranged prior to discharge on 04/11/2018. REVIEW OF SYSTEMS: Ambulation impaired with walker. No CV, , pulmonary, eye, ENT system symptoms on review. MENTAL STATUS EXAM: Reasonably oriented. Speech is coherent, abstraction fair, computation impaired, language function intact, attention span short. Mood and affect is improved. No suicidal ideation. LABORATORY DATA: Reviewed. FINAL DIAGNOSES: Major depressive disorder, recurrent, in partial remission; anxiety disorder, unspecified; impulse control disorder, unspecified; cognitive disorder, unspecified. Rest unchanged from admission. DISCHARGE MEDICATIONS: Please refer to the MRAD. DISCHARGE INSTRUCTIONS: Time for discharge day management is greater than 30 minutes. MAN Елнеа MATHIS MD DR: KIRSTEN/comfort JOB#: [id number] / [id number]
--- NOTE | 2018-04-11 23:20 | PN ---
DATE: 04/10/2018 PSYCHIATRIC PROGRESS NOTE This late entry 04/10/2018 covers elements, not covered in my initial note. SUBJECTIVE: I met with the patient evening of 04/10/2018. The patient slept 8-1/2 hours previous night. She has been fairly appropriate on the unit. Mood is improved. No active suicidal ideation. REVIEW OF SYSTEMS: Ambulation impaired with walker. No CV, , pulmonary, eye, ENT system symptoms on review. I met with her in her room. MENTAL STATUS EXAM: Oriented to herself and situation. Speech is coherent, abstraction fair, computation impaired, language function intact. Mood and affect was improved. We discussed discharge plans back home with family involvement in outpatient treatment and she was very understanding of this. LABORATORY DATA: Reviewed. IMPRESSION: Major depressive disorder in partial remission; anxiety disorder, unspecified; cognitive disorder, unspecified. Rest unchanged. PLAN: No change from initial note. SHERRY MATHIS MD DR: KIRSTEN/comfort JOB#: [id number] / [id number]
== END 2018-04-11 15:35 | disposition home health service (06) | DRG 885 ==
LOC: GEROPSY 13:04
PROVIDERS: ADMIT Psychiatry & Neurology Psychiatry; ATTEND Psychiatry & Neurology Psychiatry
DX: F33.9 Major depressive disorder, recurrent, unspecified (principal); I26.99 Other pulmonary embolism without acute cor pulmonale; F01.51 Vascular dementia, unspecified severity, with behavioral disturbance; F02.81 Dementia in other diseases classified elsewhere, unspecified severity, with behavioral disturbance; R45.851 Suicidal ideations; E78.5 Hyperlipidemia, unspecified; F09 Unspecified mental disorder due to known physiological condition; F41.9 Anxiety disorder, unspecified; F63.9 Impulse disorder, unspecified; K57.90 Diverticulosis of intestine, part unspecified, without perforation or abscess without bleeding; G30.9 Alzheimer's disease, unspecified; G47.33 Obstructive sleep apnea (adult) (pediatric); H35.30 Unspecified macular degeneration; I11.0 Hypertensive heart disease with heart failure; I25.10 Atherosclerotic heart disease of native coronary artery without angina pectoris; I50.9 Heart failure, unspecified; J45.909 Unspecified asthma, uncomplicated; M19.90 Unspecified osteoarthritis, unspecified site; Z66 Do not resuscitate; Z79.899 Other long term (current) drug therapy; Z86.010 Personal history of colon polyps; Z86.711 Personal history of pulmonary embolism; Z90.49 Acquired absence of other specified parts of digestive tract; Z90.710 Acquired absence of both cervix and uterus; Z88.8 Allergy status to other drugs, medicaments and biological substances
CPT/HCPCS: 36415; 80053; 80061; 81001; 82306; 82607; 83036; 83540; 83550; 83735; 84436; 84443; 84480; 85025; 85610; 86592; 87086; 93005